=== PATIENT | male | born 1955 | race Caucasian/White ===

== ENCOUNTER → 2018-06-25 16:39 | Outpatient (CLI) | payer BC, SELFPAY ==
--- NOTE | 2018-06-25 16:44 | XR_ITS ---
EXAM: XR cervical spine 5V HISTORY: Neck pain and stiffness with limited range of motion ITS.REASON: DISORDER OF NECK ORDERING PHYSICIAN: Jerzy Gomez MD PATIENT AGE: 62 years COMPARISON: None FINDINGS: There is slight reversal of the cervical lordosis. No fracture or dislocation. Degenerative disc disease is present at C4-C5 C5-C6 and C6-C7 with small endplate osteophytes. There is mild foraminal narrowing at C5-C6 and C6-C7 left with moderate foraminal narrowing on the right at C3-C4. There is a small left cervical rib at C7. Facet and uncovertebral arthritic changes are present. IMPRESSION: 1. No acute fracture. 2. Cervical spondylosis with reversal of lordosis which may be due to patient positioning or muscle spasm with degenerative disc disease and uncovertebral and facet arthritic change with foraminal narrowing
== END ==
PROVIDERS: PCP Family Medicine; Visit Provider Family Medicine
DX: M53.82 Other specified dorsopathies, cervical region (principal)
CPT/HCPCS: 72050

== ENCOUNTER → 2018-12-12 14:41 | Outpatient (CLI) | payer BC, SELFPAY ==
[2018-12-12 15:12] LABS: Basophils # 0.1 K/mm3 (0-0.2); Basophils % 0.7 % (0.1-2.0); Eosinophils # 0.1 K/mm3 (0.0-0.4); Eosinophils % 0.8 % (0.1-12.0); Hematocrit 47.2 % (42.0-52.0); Hemoglobin 15.1 g/dL (14.1-18.0); Mean Corpuscular HGB Conc 32.1 g/dL (31.8-35.4); Mean Corpuscular Hemoglobin 28.9 pg (27.0-31.2); Mean Corpuscular Volume 90.2 fl (80-94); Mean Platelet Volume 6.6 fl (7.4-10.4); Monocytes # 0.4 K/mm3 (0.1-1.0); Monocytes % 4.7 % (1.7-9.3); Neutrophils # 4.3 K/mm3 (1.8-7.8); Neutrophils % 48.9 % (37.0-80.0); Platelet Count 367 K/mm3 (142-424); Red Blood Count 5.24 M/mm3 (4.60-6.20); Red Cell Distribution Width 12.9 % (11.5-17.5); White Blood Count 8.9 K/mm3 (4.8-10.8)
[2018-12-12 17:55] LABS: Alanine Aminotransferase 30 U/L (12-78); Albumin Level 4.2 gm/dL (3.4-5.0); Albumin/Globulin Ratio 1.3 (1.1-1.8); Alkaline Phosphatase 81 U/L (46-116); Anion Gap 15.2 mEq/L (5-15); Aspartate Amino Transferase 14 U/L (15-37); Bilirubin,Total 0.4 mg/dL (0.2-1.0); Blood Urea Nitrogen 9 mg/dL (7-18); Calcium 9.5 mg/dL (8.5-10.1); Carbon Dioxide 26 mmol/L (21.0-32.0); Chloride 101 mmol/L (98-107); Creatinine,Serum 0.91 mg/dL (0.70-1.30); Estimated Glomerular Filt Rate 84 ml/min (>60); GFR (African American) 102 ML/MIN (>60); Globulin 3.3 gm/dl (1.3-3.2); Glucose 88 mg/dL (74-106); Potassium 4.2 mmoL/L (3.5-5.1); Sodium 138 mmol/L (136-145); Total Protein,Serum 7.5 gm/dL (6.4-8.2)
== END ==
PROVIDERS: Visit Provider Physician Assistant
DX: R07.89 Other chest pain (principal); R53.83 Other fatigue; I10 Essential (primary) hypertension
CPT/HCPCS: 36415; 80053; 83880; 85025

== ENCOUNTER → 2020-06-25 11:20 | Outpatient (CLI) | payer BC, SELFPAY ==
--- NOTE | 2020-06-25 11:26 | XR_ITS ---
PROCEDURE: XR FOOT RT MIN 3V CLINICAL INDICATION: RT FOOT PAIN First and 2nd toe pain COMPARISON: No exams were available for comparison FINDINGS: No fracture or dislocation. No lytic or blastic change. There is normal mineralization. Osteoarthritic changes are present at the 1st MTP joint Other findings:None. IMPRESSION: Mild osteoarthritic change 1st MTP joint Dictated by: Hood Lackey MD 06/26/2020 09:48 Electronically signed by Hood Lackey MD in [place] 06/26/2020 09:48
== END ==
PROVIDERS: PCP Family Medicine; Visit Provider Family Medicine
DX: M79.671 Pain in right foot (principal)
CPT/HCPCS: 73630

== ENCOUNTER → 2023-04-25 10:41 | Outpatient (POV) | payer BC, SELFPAY | PROVIDERS: Visit Provider Dermatology | DX: Z00.00 Encounter for general adult medical examination without abnormal findings (principal) ==

== ENCOUNTER 2024-10-30 11:12 | Outpatient (CLI) | payer BC, SELFPAY ==
[2024-10-30 18:15] LABS: Adenovirus,PCR Not Detected (NotDetected); Bordetella Pertussis Not Detected (NotDetected); Chlamydophila Pneumoniae, PCR Not Detected (NotDetected); Coronavirus 19, PCR Not Detected (NotDetected); Coronavirus 229E Not Detected (NotDetected); Coronavirus NL63 Not Detected (NotDetected); Coronavirus OC43 Not Detected (NotDetected); Coronovirus HKU1,PCR Not Detected (NotDetected); Human Metapneumovirus Not Detected (NotDetected); Influenza A, PCR Not Detected (NotDetected); Influenza AH1, 2009 Not Detected (NotDetected); Influenza AH1, PCR Not Detected (NotDetected); Influenza AH3,PCR Not Detected (NotDetected); Influenza B, PCR Not Detected (NotDetected); Mycoplasma Pneumoniae, PCR Not Detected (NotDetected); Parainfluenza 1, PCR Not Detected (NotDetected); Parainfluenza 2, PCR Not Detected (NotDetected); Parainfluenza 3, PCR Not Detected (NotDetected); Parainfluenza 4, PCR Not Detected (NotDetected); Respiratory Syncytial Virus Not Detected (NotDetected)
[2024-10-31 17:50] LABS: Rhinovirus/Enterovirus Detected (NotDetected)
== END 2024-10-30 23:59 | disposition home or self-care (01) ==
LOC: LAB.DROPOF 10-31 10:48
PROVIDERS: PCP Nurse Practitioner Family; Visit Provider Nurse Practitioner Family
DX: R09.81 Nasal congestion (principal); J02.9 Acute pharyngitis, unspecified
CPT/HCPCS: 87070; 87633

== ENCOUNTER 2025-09-26 07:59 | Outpatient (CLI) | payer BC, SELFPAY ==
--- OUTSIDE RECORDS SUMMARY | 2024-09-11 05:00 | XMS_ITS ---
Author Organization [facility] Address [address] [facility] [address] [place] [id number] Care Team Providers Care Fruit Or Nut Picker Name Role Phone Brittny Gomez Primary Care Provider BRITTNY GOMEZ Unavailable Unavailable Allergies No Known Allergies Results Component Value Reference Range Notes Glucose (In-House) Reviewed date:09/12/2024 10:32:23 AM Interpretation:116 Performing Lab: Notes/Report: 116 blood glucose 116 74 - 106 mg/dL Glycohemoglobin A1c (in hous e) Reviewed date:09/12/2024 10:32:23 AM Interpretation:5.5 Performing Lab: Notes/Report: 5.5 glycohemoglobin 5.5% 5 - 6.5 % P-Comprehensive Metabolic Pa yaneli (CMP) Reviewed date:09/12/2024 10:32:23 AM Interpretation:gluc 110 Performing Lab: Notes/Report: Test performed by [facility], [facility] , [address], [place] [address] Noble Yoon MD, [employer] Mixer Operator CLIA: [id number] Sodium 138 135-145 mmol/L Potassium 4.7 3.5-5.3 mmol/L Chloride 102 97-108 mmol/L CO2 26 22-32 mmol/L Glucose 110 65-99 mg/dL BUN 10 8-23 mg/dL Creatinine 0.98 0.70-1.30 mg/dL Calcium 9.7 8.6-10.4 mg/dL eGFR by Creatinine 84 >59 mL/min/1.73m2 Protein 7.0 6.0-8.3 g/dL Albumin 4.5 3.5-5.3 g/dL Alkaline Phosphatase 87 40-129 IU/L ALT (SGPT) 48 <5-55 IU/L AST (SGOT) 43 <5-46 IU/L Bilirubin, Total 0.6 <0.2-1.2 mg/dL A/G Ratio 1.8 1.1-2.5 P-Lipid Panel Reviewed date:09/12/2024 10:32:23 AM Interpretation:chol 203, trigs 191, hdl 37, chol/hdl 5.49, non-hdl 166, ldl/hdl 3.5 Performing Lab: Notes/Report: Test performed by [facility], [address] , [place] [address] Noble Yoon MD, [employer] Mixer Operator CLIA: [id number] Cholesterol 203 <200 mg/dL Triglycerides 191 <150 mg/dL HDL Cholesterol 37 >39 mg/dL Cholesterol / HDL Ratio 5.49 0.00-4.99 Ratio Non-HDL Cholesterol 166 <130 mg/dL LDL Cholesterol (Calculation) 128 <130 mg/dL LDL Cholesterol Levels* Less than 100 mg/dL Optimal 100 to 129 mg/dL Near Optimal/ Above Optimal 130 to 159 mg/dL Borderline High 160 to 189 mg/dL High 190 mg/dL and above Very High * Categories as recommended by the 2004 ATPIII guidelines LDL/HDL Ratio 3.5 <3.3 Ratio LDL Cholesterol Patient History Test Date: 03/21/2024 LDL Results: 107 Units: mg/dL % Change: - Test Date: 09/11/2024 LDL Results: 128 Units: mg/dL % Change: +19% REASON FOR VISIT 6 months Medications Medication SIG (Take, Route, Frequency, Duration) Notes Start Date End Date Status Metoprolol Tartrate 25 MG 1/2 tablet wit h food Orally Twice a day; Duration: 90 days Active Lisinopril 2.5 MG TAKE 1 TABLET BY NIK EVERY DAY FOR 90 DAYS; Duration: 90 days Active Nitroglycerin 0.[address] 1 TABLET UNDE R TONGUE EVERY 5 MINS, UP TO 3 DOSES NEEDED FOR CHEST PAIN; Duration: 25 Active Albuterol Sulfate HFA 108 (90 Base) MCG/ACT 1 puff as needed Inhalation every 4 hrs Active Montelukast Sodium 10 MG TAKE 1 TABLET B Y MOUTH EVERY DAY FOR 90 DAYS; Duration: 90 days Active Vitamin D3 50 MCG (2000 UT) 1 tab(s) ora lly once a day; Duration: 30 day(s) Active Aspirin 81 MG 1 tab(s) orally once a day Active Pantoprazole Sodium 40 MG 1 tab(s) orall y once a day; Duration: 90 days Active Wixela Inhub 250-50 MCG/ACT INHALE 1 PUF F TWICE A DAY; Duration: 90 days Active Pravastatin Sodium 80 MG 1 tab(s) orally once a day; Duration: 90 days Active Immunizations Vaccine Route Administration Date Status Comme nts Fluzone High Dose (65yr and older) IM Intramuscular 09/11/2024 Administered Prevnar (PCV20) IM Intramuscular 09/11/2024 Administered Problems Problem Type SNOMED Code ICD Code Onset Dates Problem Status W/U Status Risk Notes Problem Impaired fasting glycaemia (827140323) IFG (impaired fasting glucose) (R73.01) Active confirmed Vital Signs Blood pressure systolic 120 mm Hg 09/11/20 24 Blood pressure diastolic 74 mm Hg 024 Heart Rate 84 /min 09/11/2024 Height 70 in 09/11/2024 Weight 213 lbs 09/11/2024 BMI 30.56 kg/m2 09/11/2024 Encounters Encounter Location Date Provider Diagnosis [facility] [address] [place], [place] [id number] 09/11/2024 Brittny Gomez Essential hypertensi on I10 ; Chronic obstructive pulmonary disease, unspecified J44.9 ; Allergic rhinitis, unspecified seasonality, unspecified trigger J30.9 ; Dyslipidemia E78.5 ; Gastroesophageal reflux disease without esophagitis K21.9 ; IFG (impaired fasting glucose) R73.01 and Encounter for immunization Z23 Assessments Encounter Date Diagnosis (ICD Code) Assessment Notes Treatment Notes Treatment Clinical Notes Section Notes 09/11/2024 Essential hypertension (ICD-10 - I10) 09/11/2024 Chronic obstructive pulmonary disease, unspecified (ICD-10 - J44.9) 09/11/2024 Allergic rhinitis, unspecified seasonality, unspecified trigger (ICD-10 - J30.9) 09/11/2024 Dyslipidemia (ICD-10 - E78.5) 09/11/2024 Gastroesophageal reflux disease without esophagitis (ICD-10 - K21.9) 09/11/2024 IFG (impaired fasting glucose) (ICD-10 - R73.01) 09/11/2024 Encounter for immunization (ICD-10 - Z23) Plan Of Treatment Medication Medication Name Sig Start Date Stop Date Notes Metoprolol Tartrate 25 MG 1/2 tablet wit h food Orally Twice a day; Duration: 90 days Lisinopril 2.5 MG TAKE 1 TABLET BY NIK TH EVERY DAY FOR 90 DAYS; Duration: 90 days Montelukast Sodium 10 MG TAKE 1 TABLET B Y MOUTH EVERY DAY FOR 90 DAYS; Duration: 90 days Pantoprazole Sodium 40 MG 1 tab(s) orall y once a day; Duration: 90 days Wixela Inhub 250-50 MCG/ACT INHALE 1 PUF F TWICE A DAY; Duration: 90 days Pravastatin Sodium 80 MG 1 tab(s) orally once a day; Duration: 90 days Next Appt Details Follow Up: 6 Months, Reason: Provider Name:Brittny Drew ry, 03/12/2026 09:30:00 AM, [address], [address], [place], [place], [phone], Progress Notes * IQRA TURKDOB: [birth year] (70 yo M)Acc No.[id number]:09/11/2024 Progress Notes Patient: IQRA HILLIADR Provider: Michael Gomez M.D. :1955 A ge:68 Y S ex:Male Date:09/11/2024 Address:[facility] [place], [id number] Subjective: * Chief Complaints: * 1 . 6 months. * HPI: C ardiology: 68 year old male presents with c/o Blood Pressure Elevated P t here for 6 mo f/u on hypertension, states he is doing well and does not have any concerns. c/o Hyperlipidemia P t is fasting today. * ROS: D ERMATOLOGY: no R lily. n o H viridiana. G ASTROENTEROLOGY: no N ausea. n o V omiting. U ROLOGY: no D ifficulty urinating. n o B lood in urine. * Medical History: C oronary Artery Disease, Myocardial Infarction 06/23/2014, Hyperlipidemia, Esophageal Reflux, COPD, PFT's 09/2014, Allergic Rhinitis, Hyperuricemia, 50 pack year smoking history, quit 2021, Allergic rhinitis. * Surgical History: A ppendectomy , Finger , Double Hernia Repair 1992, Hernia Repair 2005, Colonscopy, Polyps x 2 , Cardiac Stent- [facility] 06/23/2014 , RT Lung, Wedge Biopsy, Benign- [facility] 02/2022. * Hospitalization/Major Diagno stic Procedure: S tomach Pain- [facility] 07/18/2011, Myocardial Infarction- [facility] 06/23-, LT Index Finegr Laceration- [facility] 05/24/2016, Heat Exhaustion- [facility] 07/02/2016, Head Laceration- [facility] 07/21/2016. * Family History: F ather: 79 yrs. M other: alive 74 yrs. P aternal Grand Father: .?Paternal Grand Mother: . M aternal Grand Father: . M aternal Grand Mother: . 2 daughter(s) - healthy. . no known colon cancer in family. * Social History: C URRENT TOBACCO USE S moking Status: P atient does NOT smoke. C affeine: yes, frequency:daily. Exercise: yes. Home smoke detector use: yes. Marital Status: . New since last visit: none. 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 Past smoking status: yes, PPD:1pkqd , years:32 ,determination:. Occup. exposure: none. Recreational drug use: no. Alcohol: no. Sexually active: yes. Travel ouside [place]: no. * Medications: T aking Vitamin D3 50 MCG (2000 UT) Tablet 1 tab(s) orally once a day , Taking Aspirin 81 MG Tablet Delayed Release 1 tab(s) orally once a day , Taking Albuterol Sulfate HFA 108 (90 Base) MCG/ACT Aerosol Solution 1 puff as needed Inhalation every 4 hrs , Taking Pravastatin Sodium 80 MG Tablet 1 tab(s) orally once a day , Taking Pantoprazole Sodium 40 MG Tablet Delayed Release 1 tab(s) orally once a day , Taking Wixela Inhub 250-50 MCG/ACT Aerosol Powder Breath Activated INHALE 1 PUFF TWICE A DAY , Taking Nitroglycerin 0.[address] 1 TABLET UNDER TONGUE EVERY 5 MINS, UP TO 3 DOSES NEEDED FOR CHEST PAIN , Taking Metoprolol Tartrate 25 MG Tablet 1/2 tablet with food Orally Twice a day , Taking Lisinopril 2.5 MG Tablet TAKE 1 TABLET BY MOUTH EVERY DAY FOR 90 DAYS , Taking Montelukast Sodium 10 MG Tablet TAKE 1 TABLET BY MOUTH EVERY DAY FOR 90 DAYS , Discontinued Clopidogrel Bisulfate 75 MG Tablet 1 tab(s) orally once a day , Medication List reviewed and reconciled with the patient * Allergies: N .K.D.A. Objective: * Vitals: W t:213, Temp:98.0, BP:120/74, HR:84, Nurse:mellissa, Ht: 70, BMI:30.56. * Examination: C ardiology: General Appearance: p leasant, NAD. H eart sounds: R RR, normal S1, S2. L ungs: c lear, no rales or wheezes. E xtremities: n o leg edema. P eripheral pulses: 2 plus bilateral. Assessment: * Assessment: 1. E ssential hypertension - I10 (Primary) 2 . C hronic obstructive pulmonary disease, unspecified - J44.9 3 . A llergic rhinitis, unspecified seasonality, unspecified trigger - J30.9 4 . D yslipidemia - E78.5 5 . G astroesophageal reflux disease without esophagitis - K21.9 6 . I FG (impaired fasting glucose) - R73.01 7 . E ncounter for immunization - Z23 Plan: * Treatment: Value Reference Range A /G Ratio 1.8 1.1-2.5 - * A lbumin 4.5 3.5-5.3 - g/dL * A lkaline Phosphatase 87 40-129 - IU/L * A LT (SGPT) 48 <5-55 - IU/L * A ST (SGOT) 43 <5-46 - IU/L * B ilirubin, Total 0.6 <0.2-1.2 - mg/dL * B UN 10 8-23 - mg/dL * C alcium 9.7 8.6-10.4 - mg/dL * C hloride 102 97-108 - mmol/L * C O2 26 22-32 - mmol/L * C reatinine 0.98 0.70-1.30 - mg/dL * G lucose 110 H 65-99 - mg/dL * P otassium 4.7 3.5-5.3 - mmol/L * S odium 138 135-145 - mmol/L * P rotein 7.0 6.0-8.3 - g/dL * e GFR by Creatinine 84 >59 - mL/min/1.73m2 * Haydee Dexter 09/12/2024 10:3 2:14 AM >See phone encounter 2.?Chronic obstructive pulmonary disease, unspecified? Refill Wixela Inhub Aerosol Powder Breath Activated, 250-50 MCG/ACT, INHALE 1 PUFF TWICE A DAY, 90 days, 180 Each, Refills 1.??3.?Allergic rhinitis, unspecified seasonality, unspecified trigger? Refill Montelukast Sodium Tablet, 10 MG, TAKE 1 TABLET BY MOUTH EVERY DAY FOR 90 DAYS, 90 days, 90 Tablet, Refills 1.??4.?Dyslipidemia? Refill Pravastatin Sodium Tablet, 80 MG, 1 tab(s), orally, once a day, 90 days, 90, Refills 1.?LAB: P-Comprehensive Metabolic Panel (CMP) (Collection Date & Time - 09/11/2024 08:51 AM)?gluc 110* Value Reference Range A /G Ratio 1.8 1.1-2.5 - * A lbumin 4.5 3.5-5.3 - g/dL * A lkaline Phosphatase 87 40-129 - IU/L * A LT (SGPT) 48 <5-55 - IU/L * A ST (SGOT) 43 <5-46 - IU/L * B ilirubin, Total 0.6 <0.2-1.2 - mg/dL * B UN 10 8-23 - mg/dL * C alcium 9.7 8.6-10.4 - mg/dL * C hloride 102 97-108 - mmol/L * C O2 26 22-32 - mmol/L * C reatinine 0.98 0.70-1.30 - mg/dL * G lucose 110 H 65-99 - mg/dL * P otassium 4.7 3.5-5.3 - mmol/L * S odium 138 135-145 - mmol/L * P rotein 7.0 6.0-8.3 - g/dL * e GFR by Creatinine 84 >59 - mL/min/1.73m2 * Haydee Dexter 09/12/2024 10:3 2:14 AM >See phone encounter ?LAB: P-Lipid Panel (Collection Date & Time - 09/11/2024 08:51 AM)?chol 203, trigs 191, hdl 37, chol/hdl 5.49, non-hdl 166, ldl/hdl 3.5* Value Reference Range C holesterol / HDL Ratio 5.49 H 0.00-4.99 - Ratio * C holesterol 203 H <200 - mg/dL * H DL Cholesterol 37 L >39 - mg/dL * L DL Cholesterol (Calculation) 128 <130 - mg/d L * L DL/HDL Ratio 3.5 H <3.3 - Ratio * N on-HDL Cholesterol 166 H <130 - mg/dL * T riglycerides 191 H <150 - mg/dL * Haydee Dexter 09/12/2024 10:3 2:14 AM >See phone encounter 5.?Gastroesophageal reflux disease without esophagitis? Refill Pantoprazole Sodium Tablet Delayed Release, 40 MG, 1 tab(s), orally, once a day, 90 days, 90, Refills 1.??6.?IFG (impaired fasting glucose)?LAB: Glucose (In-House) (Collection Date & Time - 09/11/2024)?116* Value Reference Range b lood glucose 116 74 - 106 mg/dL * Aniyah Herrera 09/11/2024 10:39: 17 AM > Haydee Dexter 09/12/2024 10:32:14 AM >See phone encounter ?LAB: Glycohemoglobin A1c (in house) (Collection Date & Time - 09/11/2024)? 5.5* Value Reference Range g lycohemoglobin 5.5% 5 - 6.5 % * Aniyah Herrera 09/11/2024 10:43: 43 AM > Haydee Dexter 09/12/2024 10:32:14 AM >See phone encounter * Immunizations: Fluzone High Dose (65yr and older) : 0.5 mL (Route: Intramuscular) given by Aniyah Herrera on Right Deltoid (Encounter for immunization) Prevnar (PCV20) : 0.5 mL (Route: Intramuscular) given by Aniyah Herrera on Left Deltoid (Encounter for immunization) * Procedure Codes: G 2211 Complex [place], [address] GLUCOSE TEST, 01206 GLYCATED HEMOGLOBIN TEST, Modifiers: QW * Follow Up: 6 Months * Images: Billing Information: * Visit Code: 03865 Office Visit, Est Pt., Level 4. * Procedure Codes: G2211 Complex e/[place]. [address] GLUCOSE TEST. 84618 GLYCATED HEMOGLOBIN TEST. Modifiers: QW * Electronic signature of Jaylyn Gomez MD on 09/26/2025 at 08:01 AM EDT Sign off status: Pending * Provider: Michael Gomez M.D. Date: Generated for Alicia west/Marbella/Frankyitting on: 08:01 AM EDT History and Physical Notes * HPI (History of Present Illness) Category Sub-Category Detail Notes Category Not es Cardiology Blood Pressure Elevated Pt here for 6 mo f/u on hypertension, states he is doing well and does not have any concerns Hyperlipidemia Pt is fasting today Examination Category Sub-Category Detail Notes Category Not es Cardiology Lungs: clear, no rales or wheezes Heart sounds: RRR, normal S1, S2 Extremities: no leg edema Peripheral pulses: 2 plus bilateral General Appearance: pleasant, NAD
--- OUTSIDE RECORDS SUMMARY | 2024-10-23 10:00 | XMS_ITS ---
Author Organization 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 Referred Provider Specialty Dermatology General Notes Pau Flores 09/28 2:18:01 PM > Needs appt with Dr. Ariana LAMAR for skin lesion and also needs a head to toe skin exam, Purvi Aleman 10/23/2024 2:20:14 PM > faxed to [facility], Dayanara Colin 10/23/2024 3:26:41 PM > Patient called and he is scheduled with [facility] on Nov.01 Referral Priority Routine REASON FOR VISIT dry spot on arm turned into scalling buring raised area Medications Medication SIG (Take, Route, Frequency, Duration) Notes Start Date End Date Status Lisinopril 2.5 MG TAKE 1 TABLET BY NIK EVERY DAY FOR 90 DAYS; Duration: 90 days Active Pantoprazole Sodium 40 MG 1 tab(s) orall y once a day; Duration: 90 days Active Wixela Inhub 250-50 MCG/ACT INHALE 1 PUF F TWICE A DAY; Duration: 90 days Active Montelukast Sodium 10 MG TAKE 1 TABLET B Y MOUTH EVERY DAY FOR 90 DAYS; Duration: 90 days Active Metoprolol Tartrate 25 MG 1/2 tablet wit h food Orally Twice a day; Duration: 90 days Active Vitamin D3 50 MCG (2000 UT) 1 tab(s) ora lly once a day; Duration: 30 day(s) Active Aspirin 81 MG 1 tab(s) orally once a day Active Albuterol Sulfate HFA 108 (90 Base) MCG/ACT 1 puff as needed Inhalation every 4 hrs Active Nitroglycerin 0.[address] 1 TABLET UNDE R TONGUE EVERY 5 MINS, UP TO 3 DOSES NEEDED FOR CHEST PAIN; Duration: 25 Active Pravastatin Sodium 80 MG 1 tab(s) orally once a day; Duration: 90 days Active Vital Signs Blood pressure systolic 124 mm Hg 10/23/20 24 Blood pressure diastolic 84 mm Hg 024 Heart Rate 82 /min 10/23/2024 Height 70 in 10/23/2024 Weight 213.4 lbs 10/23/2024 BMI 30.62 kg/m2 10/23/2024 Encounters Encounter Location Date Provider Diagnosis [facility] [address] [facility] [address] [place] [id number] 10/23/2024 Pau Flores Neoplasm of uncertai n behavior of skin D48.5 Assessments Encounter Date Diagnosis (ICD Code) Assessment Notes Treatment Notes Treatment Clinical Notes Section Notes 10/23/2024 Neoplasm of uncertain behavior of skin (ICD-10 - D48.5) 1.5 x 1 cm in size Plan Of Treatment Treatment Notes Assessment Notes Neoplasm of uncertain behavior of skin 1 .5 x 1 cm in size Referrals Referral Date Details 10/23/2024 10/23/2024, . Dermat ology Next Appt Details Follow Up: with dermatology, Reason: Provider Name:Brittny dexter, 03/12/2026 09:30:00 AM, [address], [address], [place], [id number], Progress Notes * IQRA TURKDOB: [birth year] (70 yo M)Acc No.[id number]:10/23/2024 Progress Notes Patient: Michael IQRA BROTHERS Provider: SILAS Ramirez :1955 A ge:69 Y S ex:Male Date:10/23/2024 Address:[address], [place], [id number] Pcp:Brittny Gomez Subjective: * Chief Complaints: * 1 . Dry spot on arm turned into scalling buring raised area. * HPI: D ermatology: 69 year old male presents with c/o Dry Skin P t complains of dry skin patch in rt forearm that he noticed a couple weeks ago. Pt states the patch has started burning and itching now and he is concerned. * ROS: C ARDIOLOGY: no D izziness. n o C hest pain. G ASTROENTEROLOGY: no N ausea. n o [...] Colonscopy, Polyps x 2 , Cardiac Stent- [facility] 06/23/2014 , RT Lung, Wedge Biopsy, Benign- [place] 02/2022. * Hospitalization/Major Diagno stic Procedure: S tomach Pain- [facility] 07/18/2011, Myocardial Infarction- [place] 06/23-, LT Index Finegr Laceration- [facility] 05/24/2016, Heat Exhaustion- [facility] 07/02/2016, Head Laceration- [facility] 07/21/2016. * Family History: F ather: [...] needed Inhalation every 4 hrs , Taking Nitroglycerin 0.[address] 1 TABLET UNDER TONGUE EVERY 5 MINS, UP TO 3 DOSES NEEDED FOR CHEST PAIN , Taking Pravastatin Sodium 80 MG Tablet 1 tab(s) orally once a day , Taking Pantoprazole Sodium 40 MG Tablet Delayed Release 1 tab(s) orally once a day , Taking Wixela Inhub 250-50 MCG/ACT Aerosol Powder Breath Activated INHALE 1 PUFF TWICE A DAY , Taking Montelukast Sodium 10 MG Tablet TAKE 1 TABLET BY MOUTH EVERY DAY FOR 90 DAYS , Taking Metoprolol Tartrate 25 MG Tablet 1/2 tablet with food Orally Twice a day , Taking Lisinopril 2.5 MG Tablet TAKE 1 TABLET BY MOUTH EVERY DAY FOR 90 DAYS , Medication List reviewed and reconciled with the patient * Allergies: N .K.D.A. Objective: * Vitals: W t:213.4, Temp:97.7, BP:124/84, HR:82, Nurse:mellissa, Ht: 70, BMI:30.62. * Examination: D ermatology: Extremities: r ight forearm with a 1 x 1.5cm erythematous skin lesion that is scaly and tender, non healing. Assessment: * Assessment: 1. 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 * Procedure Codes: * Electronic signature of SILAS Cintron on 09/26/2025 at 08:02 AM EDT Sign off status: Pending * Provider: SILAS Ramirez Date: 12/23/2023 Generated for Alicia west/Marbella/eTransmitting on: 08:02 AM EDT History and Physical Notes * HPI (History of Present Illness) Category Sub-Category Detail Notes Category Not es Dermatology Dry Skin Pt complains of dry skin patch in rt forearm that he noticed a couple weeks ago. Pt states the patch has started burning and itching now and he is concerned Examination Category Sub-Category Detail Notes Category Not es Dermatology Extremities: right forearm wi th a 1 x 1.5cm erythematous skin lesion that is scaly and tender, non healing Consultation Request Notes Referral Date Referring Provider Referred Provider Not es 10/23/2024 Pau Flores Dermatology, .
--- OUTSIDE RECORDS SUMMARY | 2024-11-05 10:30 | XMS_ITS ---
Author Organization [facility] Address [address] [facility] [address] [place] [id number] Care Team Providers Care Chamber Worker Name Role Phone Brittny Gomez Primary Care Provider BRITTNY GOMEZ Unavailable Unavailable Ranyd Bryant Unavailable [phone] Allergies No Known Allergies Results Component Value Reference Range Notes CBC Fingerstick (in house) Reviewed date:11/05/2024 03:46:34 PM Interpretation: Performing Lab: Notes/Report: wbc 9.6 3.5 - 10 lym 30.1 15 - 50 mid 6.0 2 - 15 gran 63.9 35 - 80 rbc 5.41 3.5 - 5.5 hgb 15.5 11.5 - 16.5 hct 46.0 35 - 55 mcv 85.1 75 - 100 mch 28.6 25 - 35 mchc 33.6 31 - 38 plat 190 100 - 400 REASON FOR VISIT head congestion, chest congestion, concerns of pnemonia Medications Medication SIG (Take, Route, Frequency, Duration) Notes Start Date End Date Status Pantoprazole Sodium 40 MG 1 tab(s) orall y once a day; Duration: 90 days Active Albuterol Sulfate HFA 108 (90 Base) MCG/ACT 1 puff as needed Inhalation every 4 hrs Active Montelukast Sodium 10 MG TAKE 1 TABLET B Y MOUTH EVERY DAY FOR 90 DAYS; Duration: 90 days Active Vlteodquc-Bedzpuph-MP 30-1-20 MG/5ML 5 -10 ml Orally every 6 hrs prn 11/05/2024 Active Wixela Inhub 250-50 MCG/ACT INHALE 1 PUF F TWICE A DAY Active Aspirin 81 MG 1 tab(s) orally once a day Active Nitroglycerin 0.[address] 1 TABLET UNDE R TONGUE EVERY 5 MINS, UP TO 3 DOSES NEEDED FOR CHEST PAIN; Duration: 25 Active Cefuroxime Axetil 500 MG 1 tablet Orally every 12 hrs 11/05/2024 Active Pravastatin Sodium 80 MG 1 tab(s) orally once a day; Duration: 90 days Active Vitamin D3 50 MCG (1999 UT) 1 tab(s) ora lly once a day; Duration: 30 day(s) Active Lisinopril 2.5 MG TAKE 1 TABLET BY NIK TH EVERY DAY FOR 90 DAYS; Duration: 90 days Active Metoprolol Tartrate 25 MG 1/2 tablet wit h food Orally Twice a day; Duration: 90 days Active Benzonatate 200 MG 1 capsule Orally Thr ee times a day 11/01/2024 Active Vital Signs Blood pressure systolic 120 mm Hg 11/05/20 24 Blood pressure diastolic 90 mm Hg 024 Heart Rate 92 /min 11/05/2024 Height 70 in 11/05/2024 Weight 211.2 lbs 11/05/2024 BMI 30.30 kg/m2 11/05/2024 Encounters Encounter Location Date Provider Diagnosis [facility] [facility] [address] [place] [id number] 11/05/2024 Randy Bryant Acute bronchitis J20 .9 and COPD (chronic obstructive pulmonary disease) J44.9 Assessments Encounter Date Diagnosis (ICD Code) Assessment Notes Treatment Notes Treatment Clinical Notes Section Notes 11/05/2024 Acute bronchitis (ICD-10 - J20.9) 11/05/2024 COPD (chronic obstructive pulmonary disease) (ICD-10 - J44.9) Plan Of Treatment Medication Medication Name Sig Start Date Stop Date Notes Albuterol Sulfate HFA 108 (9 0 Base) MCG/ACT 1 puff as needed Inhalation every 4 hrs Oarmsdlfl-Nvypjios-ZO 30-1-2 0 MG/5ML 5 -10 ml Orally every 6 hrs prn 11/05/2024 Wixela Inhub 250-50 MCG/ACT INHALE 1 PUFF TWICE A DAY Cefuroxime Axetil 500 MG 1 tablet Orally every 12 hrs 10/27 Next Appt Details Follow Up: prn, Reason: Provider Name:Brittny Drew ry, 03/12/2026 09:30:00 AM, [address], [address], [place], [place], [id number], Medications Administered Medication Instructions Date of Administration Dosage Notes Dexamethasone 11/05/2024 1 mL Progress Notes * IQRA TURKDOB: [birth year] (70 yo M)Acc No.[id number]:11/05/2024 Progress Notes Patient: IQRA HILLIARD Provider: Randy Bryant M.D. :1955 A ge:69 Y S ex:Male Date:11/05/2024 Address:[id number] Pcp:Brittny Gomez Subjective: * Chief Complaints: * 1 . Head congestion, chest congestion, concerns of pnemonia. * HPI: E NT/respiratory: 69 year old male presents with c/o cough P t sts he started to get sick last Monday. Pt sts he went to primary care [facility] and was tested for flu and c ovid which were both negative. Pt sts he took the medication given for a viral infection and sts he is just getting worse. Pt sts he has a bad cough , greenish yellow sputum production and sts he has busted a blood vessel in his right eye from coughing so much and so hard. c/o nasal congestion?yellow drainage, green drainage, getting worse. c/o chest congestion. * ROS: C ARDIOLOGY: no D izziness. [...] Colonscopy, Polyps x 2 , Cardiac Stent- [place] 06/23/2014 , RT Lung, Wedge Biopsy, Benign- [place] 02/2022. * Hospitalization/Major Diagno stic Procedure: S tomach Pain- [facility] 07/18/2011, Myocardial Infarction- [place] 06/23-, LT Index Finegr Laceration- [facility] 05/24/2016, Heat Exhaustion- [facility] 07/02/2016, Head Laceration- [facility] 07/21/2016. * Family History: F ather: [...] EVERY DAY FOR 90 DAYS , Taking Benzonatate 200 MG Capsule 1 capsule Orally Three times a day , Medication List reviewed and reconciled with the patient * Allergies: N .K.D.A. Objective: * Vitals: W t:211.2, Temp:97.6, BP:120/90, HR:92, Nurse:MEREDITH, Ht: 70, BMI:30.30. * Examination: E NT/Respiratory: General Appearance: appears not to feel well. Mildly dyspneic. E ars: a uditory canals normal bilaterally, TM's WNL. N ose : congested. S inuses : tender maxillary sinuses bilaterally, frontal sinuses tender. O ral cavity : erythema without exudate on pharynx. H eart : R RR, normal S1 S2, no murmurs.?Lungs: S cattered rhonchi and occasional wheezes. Assessment: * Assessment: 1. A cute bronchitis - J20.9 (Primary) 2 . C OPD (chronic obstructive pulmonary disease) - J44.9 Plan: * Treatment: Value Reference Range w bc 9.6 3.5 - 10 * l ym 30.1 15 - 50 * m id 6.0 2 - 15 * g ran 63.9 35 - 80 * r bc 5.41 3.5 - 5.5 * h gb 15.5 11.5 - 16.5 * h ct 46.0 35 - 55 * m cv 85.1 75 - 100 * m ch 28.6 25 - 35 * m chc 33.6 31 - 38 * p lat 190 100 - 400 * Hannah Silva 11/05/2024 2:43 :35 PM > , Provider reviewed results while patient in office. 2.?COPD (chronic obstructive pulmonary disease)? Continue Albuterol Sulfate HFA Aerosol Solution, 108 (90 Base) MCG/ACT, 1 puff as needed, Inhalation, every 4 hrs;?Continue Wixela Inhub Aerosol Powder Breath Activated, 250-50 MCG/ACT, INHALE 1PUFF TWICE A DAY.?? * Therapeutic Injections: Dexamethasone : 1 mL (Route: Intramuscular) given by MEREDITH Schmitz on right gluteus (Acute bronchitis) * Procedure Codes: 3 6416 CAPILLARY BLOOD DRAW, 56936 CBC WITH AUTO DIFF, J1100 Dexamethasone, 82060 ADMINISTRATION OF INJECTION * Follow Up: p rn * Images: Billing Information: * Visit Code: 07876 Office Visit, Est Pt., Level 4. * Procedure Codes: 01010 CAPILLARY BLOOD DRAW. 56106 CBC WITH AUTO DIFF. J1100 Dexamethasone. 56674 ADMINISTRATION OF INJECTION. * Electronic signature of Randy Bryant MD on 09/26/2025 at 08:02 AM EDT Sign off status: Pending * Provider: Randy Bryant M.D. Date: 01/06/2024 Generated for Alicia west/[place]/eTransmitting on: 08:02 AM EDT History and Physical Notes * HPI (History of Present Illness) Category Sub-Category Detail Notes Category Not es ENT/respiratory cough Pt sts he starte d to get sick last Monday. Pt sts he went to [facility] and was tested for flu and covid which were both negative. Pt sts he took the medication given for a viral infection and sts he is just getting worse. Pt sts he has a bad cough , greenish yellow sputum production and sts he has busted a blood vessel in his right eye from coughing so much and so hard chest congestion nasal congestion yellow drainage, gre en drainage, getting worse Examination Category Sub-Category Detail Notes Category Not es ENT/Respiratory Oral cavity : erythema without exudate on pharynx Sinuses : tender maxillary sin uses bilaterally, frontal sinuses tender Ears: auditory canals norm al bilaterally, TM's WNL Heart : RRR, normal S1 S2, n o murmurs Lungs: Scattered rhonchi an d occasional wheezes General Appearance: appears not to feel well. Mildly dyspneic Nose : congested
--- OUTSIDE RECORDS SUMMARY | 2025-02-05 06:30 | XMS_ITS ---
Author Organization [facility] Address [address] [facility] [address] [place] [id number] Care Team Providers Care Liability Claims Manager Name Role Phone Brittny Gomez Primary Care Provider BRITTNY GOMEZ Unavailable Unavailable Allergies No Known Allergies Results Component Value Reference Range Notes CBC Fingerstick (in house) Reviewed date:02/05/2025 11:25:52 AM Interpretation: Performing Lab: Notes/Report: wbc 7.2 3.5 - 10 lym 36.8% 15 - 50 mid 7.5% 2 - 15 gran 55.7% 35 - 80 rbc 5.30 3.5 - 5.5 hgb 15.4 11.5 - 16.5 hct 45.9 35 - 55 mcv 85.5 75 - 100 mch 29.1 25 - 35 mchc 33.7 31 - 38 plat 196 100 - 400 REASON FOR VISIT poss ear infection Medications Medication SIG (Take, Route, Frequency, Duration) Notes Start Date End Date Status Lisinopril 2.5 MG TAKE 1 TABLET BY NIK TH EVERY DAY FOR 90 DAYS; Duration: 90 days Active Albuterol Sulfate HFA 108 (90 Base) MCG/ACT 1 puff as needed Inhalation every 4 hrs Active Metoprolol Tartrate 25 MG 1/2 tablet wit h food Orally Twice a day; Duration: 90 days Active Pantoprazole Sodium 40 MG 1 tab(s) orall y once a day; Duration: 90 days Active Montelukast Sodium 10 MG TAKE 1 TABLET B Y MOUTH EVERY DAY FOR 90 DAYS; Duration: 90 days Active Trelegy Ellipta 100-62.5-25 MCG/ACT 1 puff Inhalation Once a day 02/05/2025 Active dexAMETHasone 2 MG 1 tablet Orally ever y 12 hrs; Duration: 5 day(s) 02/05/2025 Active Pravastatin Sodium 80 MG 1 tab(s) orally once a day; Duration: 90 days Active Aspirin 81 MG 1 tab(s) orally once a day Active Nitroglycerin 0.[address] 1 TABLET UNDE R TONGUE EVERY 5 MINS, UP TO 3 DOSES NEEDED FOR CHEST PAIN; Duration: 25 Active Vitamin D3 50 MCG (1999 UT) 1 tab(s) ora lly once a day; Duration: 30 day(s) Active Vital Signs Blood pressure systolic 120 mm Hg 02/06/20 25 Blood pressure diastolic 90 mm Hg 025 Heart Rate 89 /min 02/05/2025 Height 70 in 02/05/2025 Weight 216 lbs 02/05/2025 BMI 30.99 kg/m2 02/05/2025 Encounters Encounter Location Date Provider Diagnosis [facility] 36 [facility] [address] [place] [phone] 02/05/2025 Brittny Gomez Acute URI J06.9 ; Otalgia of left ear H92.02 and Chronic obstructive pulmonary disease, unspecified J44.9 Assessments Encounter Date Diagnosis (ICD Code) Assessment Notes Treatment Notes Treatment Clinical Notes Section Notes 02/05/2025 Acute URI (ICD-10 - J06.9) 02/05/2025 Otalgia of left ear (ICD-10 - H92.02) 02/05/2025 Chronic obstructive pulmonary disease, unspecified (ICD-10 - J44.9) Plan Of Treatment Medication Medication Name Sig Start Date Stop Date Notes Wixela Inhub 250-50 MCG/ACT INHALE 1 PUFF TWICE A DAY Trelegy Ellipta 100-62.5-25 MCG/ACT 1 puff Inhalation Once a day 02/05/2025 dexAMETHasone 2 MG 1 tablet Orally ever y 12 hrs; Duration: 5 day(s) 02/05/2025 Next Appt Details Follow Up: via phone to repo rt progress, Reason: Provider Name:Brittny dexter, 03/12/2026 09:30:00 AM, [address] [facility], [address], [place], [phone], Progress Notes * IQRA TURKDOB: [birth year] (70 yo M)Acc No.[id number]:02/05/2025 Progress Notes Patient: IQRA HILLIARD Provider: Michael Gomez M.D. :1955 A ge:69 Y S ex:Male Date:02/05/2025 Address:[id number] Subjective: * Chief Complaints: * 1 . Poss ear infection. * HPI: E NT/respiratory: 69 year old male presents with c/o ear pain P t complains of lt ear pain for 3-4 days. Pt states he does have yellowish drainage coming from ear as well.? * ROS: D ERMATOLOGY: no R lily. [...] Colonscopy, Polyps x 2 , Cardiac Stent- [place] 06/23/2014 , RT Lung, Wedge Biopsy, Benign- [place] 02/2022. * Hospitalization/Major Diagno stic Procedure: S tomach Pain- [facility] 07/18/2011, Myocardial Infarction- [place] 06/23-, LT Index Finegr Laceration- [facility] 05/24/2016, Heat Exhaustion- [facility] 07/02/2016, Head Laceration- [facility] 07/21/2016. * Family History: F [...] tab(s) orally once a day , Taking Nitroglycerin 0.[address] 1 TABLET UNDER TONGUE EVERY 5 MINS, UP TO 3 DOSES NEEDED FOR CHEST PAIN , Taking Pravastatin Sodium 80 MG Tablet 1 tab(s) orally once a day , Taking Pantoprazole Sodium 40 MG Tablet Delayed Release 1 tab(s) orally once a day , Taking Montelukast Sodium 10 MG Tablet TAKE 1 TABLET BY MOUTH EVERY DAY FOR 90 DAYS , Taking Metoprolol Tartrate 25 MG Tablet 1/2 tablet with food Orally Twice a day , Taking Lisinopril 2.5 MG Tablet TAKE 1 TABLET BY MOUTH EVERY DAY FOR 90 DAYS , Taking Albuterol Sulfate HFA 108 (90 Base) MCG/ACT Aerosol Solution 1 puff as needed Inhalation every 4 hrs , Taking Wixela Inhub 250-50 MCG/ACT Aerosol Powder Breath Activated INHALE 1 PUFF TWICE A DAY , Discontinued Benzonatate 200 MG Capsule 1 capsule Orally Three times a day , Discontinued Cefuroxime Axetil 500 MG Tablet 1 tablet Orally every 12 hrs , Discontinued Eazwtqjdh-Eqtjqlpe-GC 30-1-20 MG/5ML Liquid 5 -10 ml Orally every 6 hrs prn , Medication List reviewed and reconciled with the patient * Allergies: N .K.D.A. Objective: * Vitals: W t:216, Temp:98.3, BP:120/90, HR:89, Nurse:mellissa, Ht: 70, BMI:30.99. * Examination: E NT/Respiratory: General Appearance: N AD. E ars: cerumen present bilaterally, tympanic membranes normal bilaterally. S inuses : t enderness present on left maxillary sinus. O ral cavity : erythema without exudate on pharynx. Assessment: * Assessment: 1. A cute URI - J06.9 (Primary) 2 . O talgia of left ear - H92.02 ? 3 . C hronic obstructive pulmonary disease, unspecified - J44.9 Plan: * Treatment: Value Reference Range w bc 7.2 3.5 - 10 * l ym 36.8% 15 - 50 * m id 7.5% 2 - 15 * g ran 55.7% 35 - 80 * r bc 5.30 3.5 - 5.5 * h gb 15.4 11.5 - 16.5 * h ct 45.9 35 - 55 * m cv 85.5 75 - 100 * m ch 29.1 25 - 35 * m chc 33.7 31 - 38 * p lat 196 100 - 400 * Aniyah Herrera 02/05/2025 11:25:4 4 AM > , Provider reviewed results while patient in office. 2.?Otalgia of left ear? Start dexAMETHasone Tablet, 2 MG, 1 tablet, Orally, every 12 hrs, 5 day(s), 10 Tablet, Refills 0. ?3.?Chronic obstructive pulmonary disease, unspecified? Stop Wixela Inhub Aerosol Powder Breath Activated, 250-50 MCG/ACT, INHALE 1 PUFF TWICE A DAY;?Start Trelegy Ellipta Aerosol Powder Breath Activated, 100-62.5-25 MCG/ACT, 1 puff, Inhalation, Oncea day, 30, Refills 11.?? * Procedure Codes: 3 6416 CAPILLARY BLOOD DRAW, 58725 CBC WITH AUTO DIFF, 3074F SYST BP LT 130 MM HG, 3080F DIAST BP = 90 MM HG * Follow Up: v ia phone to report progress * Images: Billing Information: * Visit Code: 06069 Office Visit, Est Pt., Level 3. * Procedure Codes: 32965 CAPILLARY BLOOD DRAW. 90218 CBC WITH AUTO DIFF. 3074F SYST BP LT 130 MM HG. 3080F DIAST BP = 90 MM HG. * Electronic signature of Jaylyn Gomez MD on 09/26/2025 at 08:01 AM EDT Sign off status: Pending * Provider: Michael Gomez M.D. Date: 0 02/05/2025 Generated for Alicia west/[place]/eTransmitting on: 1 08:01 AM EDT History and Physical Notes * HPI (History of Present Illness) Category Sub-Category Detail Notes Category Not es ENT/respiratory ear pain Pt complains of lt ear pain for 3-4 days. Pt states he does have yellowish drainage coming from ear as well Examination Category Sub-Category Detail Notes Category Not es ENT/Respiratory Oral cavity : erythema without exudate on pharynx Sinuses : tenderness present o n left maxillary sinus Ears: cerumen present bila terally, tympanic membranes normal bilaterally General Appearance: NAD
--- OUTSIDE RECORDS SUMMARY | 2025-03-12 05:00 | XMS_ITS ---
Author Organization [facility] Address [address] [facility] [address] [place] [id number] Care Team Providers Care Senior Dentist Name Role Phone Brittny Gomez Primary Care Provider [phone] BRITTNY GOMEZ Unavailable Unavailable Allergies No Known Allergies Results Component Value Reference Range Notes P-Comprehensive Metabolic Pa yaneli (CMP) Reviewed date:03/13/2025 01:46:20 PM Interpretation: Performing Lab: Notes/Report: Test performed by [facility], [address] , [address], [place] [address] Noble Yoon MD, Batch Tank Controller CLIA: [id number] Sodium 139 135-145 mmol/L Potassium 4.3 3.5-5.3 mmol/L Chloride 105 97-108 mmol/L CO2 21 22-32 mmol/L Glucose 120 65-99 mg/dL BUN 10 8-23 mg/dL Creatinine 1.09 0.70-1.30 mg/dL Calcium 9.5 8.6-10.4 mg/dL eGFR by Creatinine 74 >59 mL/min/1.73m2 Protein 7.0 6.0-8.3 g/dL Albumin 4.2 3.5-5.3 g/dL Alkaline Phosphatase 90 40-129 IU/L ALT (SGPT) 42 <5-55 IU/L AST (SGOT) 46 <5-46 IU/L Bilirubin, Total 0.5 <0.2-1.2 mg/dL A/G Ratio 1.5 1.1-2.5 P-Hemoglobin A1C Reviewed date:03/13/2025 01:46:20 PM Interpretation: Performing Lab: Notes/Report: Test performed by [facility] [address] [place], [place] [address] [place] [address] Noble Yoon MD, Batch Tank Controller CLIA: [id number] Hemoglobin A1C 5.7 <5.7 % The following HbA1c ranges recommended by the [place] [employer] (ADA) may be used as an aid in the diagnosis of diabetes mellitus. HbA1c Suggested Diagnosis >=6.5% Diabetic 5.7% - 6.4% Pre-Diabetic <5.7% Non-Diabetic P-Lipid Panel Reviewed date:03/13/2025 01:46:20 PM Interpretation: Performing Lab: Notes/Report: Test performed by [facility] [address] [place] [address] [place], [place] [address] Noble Yoon MD, Batch Tank Controller CLIA: [id number] Cholesterol 172 <200 mg/dL Triglycerides 151 <150 mg/dL HDL Cholesterol 31 >39 mg/dL Cholesterol / HDL Ratio 5.55 0.00-4.99 Ratio Non-HDL Cholesterol 141 <130 mg/dL LDL Cholesterol (Calculation) 111 <130 mg/dL LDL Cholesterol Levels* Less than 100 mg/dL Optimal 100 to 129 mg/dL Near Optimal/ Above Optimal 130 to 159 mg/dL Borderline High 160 to 189 mg/dL High 190 mg/dL and above Very High * Categories as recommended by the 2004 ATPIII guidelines LDL/HDL Ratio 3.6 <3.3 Ratio LDL Cholesterol Patient History Test Date: 03/21/2024 LDL Results: 107 Units: mg/dL % Change: - Test Date: 09/11/2024 LDL Results: 128 Units: mg/dL % Change: +19% Test Date: 03/12/2025 LDL Results: 111 Units: mg/dL % Change: -13% P-TSH reflex to FT4 Reviewed date:03/13/2025 01:46:20 PM Interpretation: Performing Lab: Notes/Report: Test performed by [facility] [address] [place], [place] [address] [facility] [place] , [place] [address] Noble Yoon MD, Batch Tank Controller CLIA: [id number] TSH reflex to FT4 1.79 0.43-5.25 mU/L P-Microalbumin/Creatinine, R andom Urine Sample Reviewed date:03/13/2025 01:46:20 PM Interpretation: Performing Lab: Notes/Report: Test performed by [facility] [address] [place], [place] [address] [facility] [place] , [place] [address] Noble Yoon MD, Batch Tank Controller CLIA: [id number] Albumin/Creatinine Ratio, Urine 3 0-30 ug/m g Microalbumin, Urine, Random 0.7 Creatinine, Urine 226.3 Estimated Average Glucose Reviewed date:03/13/2025 01:46:20 PM Interpretation: Performing Lab: Notes/Report: Test performed by [facility] , [address], [place] [address] Noble Yoon MD, Batch Tank Controller MANUEL: [id number] Estimated Average Glucose (eAG) 117 Estimated Average Glucose (eAG) is calculated using the equation eAG = (28.7 x HbA1c) - 46.7 based on the guidelines established by the ADA. If the patient has certain diseases including kidney disease, sickle cell anemia, thalassemia, or is taking medications such as dapsone, erythropoietin, or iron, eAG should not be evaluated. REASON FOR VISIT 6 mths Medications Medication SIG (Take, Route, Frequency, Duration) Notes Start Date End Date Status Pantoprazole Sodium 40 MG 1 tab(s) orall y once a day; Duration: 90 days Active Vitamin D3 50 MCG (1999 UT) 1 tab(s) ora lly once a day; Duration: 30 day(s) Active Pravastatin Sodium 80 MG 1 tab(s) orally once a day; Duration: 90 days Active Metoprolol Tartrate 25 MG 1/2 tablet wit h food Orally Twice a day; Duration: 90 days Active Lisinopril 2.5 MG TAKE 1 TABLET BY NIK TH EVERY DAY FOR 90 DAYS; Duration: 90 days Active Cetirizine HCl 10 MG 1 tablet Orally Onc e a day; Duration: 90 days 03/12/2025 Active Montelukast Sodium 10 MG TAKE 1 TABLET B Y MOUTH EVERY DAY FOR 90 DAYS; Duration: 90 days Active Albuterol Sulfate HFA 108 (90 Base) MCG/ACT 1 puff as needed Inhalation every 4 hrs Active Trelegy Ellipta 100-62.5-25 MCG/ACT 1 puff Inhalation Once a day 02/05/2025 Active Nitroglycerin 0.[address] 1 TABLET UNDE R TONGUE EVERY 5 MINS, UP TO 3 DOSES NEEDED FOR CHEST PAIN; Duration: 25 Active Aspirin 81 MG 1 tab(s) orally once a day Active Problems Problem Type SNOMED Code ICD Code Onset Dates Problem Status W/U Status Risk Notes Problem Body mass index 30.00 to 34.99 ([id number] 107) BMI 31.0-31.9,a dult (Z68.31) Active confirmed Vital Signs Blood pressure systolic 124 mm Hg 03/12/20 25 Blood pressure diastolic 90 mm Hg 04/16/2 025 Heart Rate 77 /min 03/12/2025 Height 70 in 03/12/2025 Weight 217 lbs 03/12/2025 BMI 31.13 kg/m2 03/12/2025 Encounters Encounter Location Date Provider Diagnosis Matt [address] [facility] [address] [id number] 03/12/2025 Brittny Gomez Essential hypertensi on I10 ; Dyslipidemia E78.5 ; IFG (impaired fasting glucose) R73.01 ; Chronic obstructive pulmonary disease, unspecified J44.9 ; Acute gout of right foot, unspecified cause M10.9 ; Coronary artery disease involving united [place] coronary artery of united [place] heart without angina pectoris I25.10 ; Gastroesophageal reflux disease without esophagitis K21.9 ; Allergic rhinitis, unspecified seasonality, unspecified trigger J30.9 and BMI 31.0-31.9,adult Z68.31 Assessments Encounter Date Diagnosis (ICD Code) Assessment Notes Treatment Notes Treatment Clinical Notes Section Notes 03/12/2025 Essential hypertension (ICD-10 - I10) Blood pressure journal 03/12/2025 Dyslipidemia (ICD-10 - E78.5) 03/12/2025 IFG (impaired fasting glucose) (ICD-10 - R73.01) 03/12/2025 Chronic obstructive pulmonary disease, unspecified (ICD-10 - J44.9) 03/12/2025 Acute gout of right foot, unspecified cause (ICD-10 - M10.9) 03/12/2025 Coronary artery disease involving united [place] coronary artery of united [place] heart without angina pectoris (ICD-10 - I25.10) 03/12/2025 Gastroesophageal reflux disease without esophagitis (ICD-10 - K21.9) 03/12/2025 Allergic rhinitis, unspecified seasonality, unspecified trigger (ICD-10 - J30.9) 03/12/2025 BMI 31.0-31.9,adult (ICD-10 - Z68.31) Plan Of Treatment Medication Medication Name Sig Start Date Stop Date Notes Pantoprazole Sodium 40 MG 1 tab(s) orall y once a day; Duration: 90 days Pravastatin Sodium 80 MG 1 tab(s) orally once a day; Duration: 90 days Metoprolol Tartrate 25 MG 1/2 tablet wit h food Orally Twice a day; Duration: 90 days Lisinopril 2.5 MG TAKE 1 TABLET BY NKI TH EVERY DAY FOR 90 DAYS; Duration: 90 days Cetirizine HCl 10 MG 1 tablet Orally Onc e a day; Duration: 90 days 03/12/2025 Montelukast Sodium 10 MG TAKE 1 TABLET B Y MOUTH EVERY DAY FOR 90 DAYS; Duration: 90 days Treatment Notes Assessment Notes Essential hypertension Blood pressure byron urnal Next Appt Details Follow Up: 6 Months, Reason: Provider Name:Brittny Drew ry, 03/12/2026 09:30:00 AM, [address], [address], [place], [place], [id number], Progress Notes * IQRA TURKDOB: [birth year] (70 yo M)Acc No.[id number]:03/12/2025 Progress Notes Patient: IQRA HILLIARD Provider: Michael Gomez M.D. :1955 A ge:69 Y S ex:Male Date:03/12/2025 Address:[address] [place], [place] [id number] Subjective: * Chief Complaints: * 1 . 6 mths. * HPI: C ardiology: 69 year old male presents with c/o BloodPressure at Home P t here for 6 mo f/u [...] Colonscopy, Polyps x 2 , Cardiac Stent- [facility] 06/23/2014 , RT Lung, Wedge Biopsy, Benign- [facility] 02/2022. * Hospitalization/Major Diagno stic Procedure: S tomach Pain- [facility] 07/18/2011, Myocardial Infarction- [facility] 06/23-, LT Index Finegr Laceration- [facility] 05/24/2016, Heat Exhaustion- [facility] 07/02/2016, Head Laceration- [facility] 07/21/2016. * Family History: [...] needed Inhalation every 4 hrs , Taking Trelegy Ellipta 100-62.5-25 MCG/ACT Aerosol Powder Breath Activated 1 puff Inhalation Once a day , Discontinued dexAMETHasone 2 MG Tablet 1 tablet Orally every 12 hrs , Medication List reviewed and reconciled with the patient * Allergies: N .K.D.A. Objective: * Vitals: W t: 217, Temp: 97.8, BP: 124/90, HR: 77, Nurse: mellissa, Ht: 70, BMI:31.13. * Examination: C ardiology: General Appearance: p leasant, NAD. H eart sounds: R RR, normal S1, S2. L ungs: c lear, no rales or wheezes. E xtremities: n o leg edema. P eripheral pulses: 2 plus bilateral. Assessment: * Assessment: 1. E ssential hypertension - I10 (Primary) 2 . D yslipidemia - E78.5 ? 3 . I FG (impaired fasting glucose) - R73.01 4 . C hronic obstructive pulmonary disease, unspecified - J44.9 5 . A cute gout of right foot, unspecified cause - M10.9 6 . C oronary artery disease involving [place] coronary artery of [place] heart without angina pectoris - I25.10 7 . G astroesophageal reflux disease without esophagitis - K21.9 8 . A llergic rhinitis, unspecified seasonality, unspecified trigger - J30.9 9 . B WA 31.0-31.9,adult - Z68.31 ? Plan: * Treatment: Value Reference Range A /G Ratio 1.5 1.1-2.5 - * A lbumin 4.2 3.5-5.3 - g/dL * A lkaline Phosphatase 90 40-129 - IU/L * A LT (SGPT) 42 <5-55 - IU/L * A ST (SGOT) 46 <5-46 - IU/L * B ilirubin, Total 0.5 <0.2-1.2 - mg/dL * B UN 10 8-23 - mg/dL * C alcium 9.5 8.6-10.4 - mg/dL * C hloride 105 97-108 - mmol/L * C O2 21 L 22-32 - mmol/L * C reatinine 1.09 0.70-1.30 - mg/dL * G lucose 120 H 65-99 - mg/dL * P otassium 4.3 3.5-5.3 - mmol/L * S odium 139 135-145 - mmol/L * P rotein 7.0 6.0-8.3 - g/dL * e GFR by Creatinine 74 >59 - mL/min/1.73m2 * Brittny Gomez 03/13/2025 1 2:54:39 PM > Sent to to inform of satisfactory results. Tracy Crystal 03/13/2025 01:45:03 PM > pt informed of results and requested a copy be mailed to him ?LAB: P-Microalbumin/Creatinine, Random Urine Sample (Collection Date & Time - 03/12/2025 08:28 AM)* Value Reference Range A lbumin/Creatinine Ratio, Urine 3 0-30 - ug /mg * C reatinine, Urine 226.3 - mg/dL * M icroalbumin, Urine, Random 0.7 - mg/dL * Brittny Gomez 03/13/2025 1 2:54:39 PM > Sent to to inform of satisfactory results. TracyCrystal 03/13/2025 01:45:03 PM > pt informed of results and requested a copy be mailed to him Notes: Blood pressure journal??2.?Dyslipidemia? Refill Pravastatin Sodium Tablet, 80 MG, 1 tab(s), orally, once a day, 90 days, 90, Refills 1.?LAB: P-Comprehensive Metabolic Panel (CMP) (Collection Date & Time - 03/12/2025 08:28 AM)* Value Reference Range A /G Ratio 1.5 1.1-2.5 - * A lbumin 4.2 3.5-5.3 - g/dL * A lkaline Phosphatase 90 40-129 - IU/L * A LT (SGPT) 42 <5-55 - IU/L * A ST (SGOT) 46 <5-46 - IU/L * B ilirubin, Total 0.5 <0.2-1.2 - mg/dL * B UN 10 8-23 - mg/dL * C alcium 9.5 8.6-10.4 - mg/dL * C hloride 105 97-108 - mmol/L * C O2 21 L 22-32 - mmol/L * C reatinine 1.09 0.70-1.30 - mg/dL * G lucose 120 H 65-99 - mg/dL * P otassium 4.3 3.5-5.3 - mmol/L * S odium 139 135-145 - mmol/L * P rotein 7.0 6.0-8.3 - g/dL * e GFR by Creatinine 74 >59 - mL/min/1.73m2 * Brittny Gomez 03/13/2025 1 2:54:39 PM > Sent to to inform of satisfactory results. Crystal Molina 03/13/2025 01:45:03 PM > pt informed of results and requested a copy be mailed to him ?LAB: P-Lipid Panel (Collection Date & Time - 03/12/2025 08:28 AM)* Value Reference Range C holesterol / HDL Ratio 5.55 H 0.00-4.99 - Ratio * C holesterol 172 <200 - mg/dL * H DL Cholesterol 31 L >39 - mg/dL * L DL Cholesterol (Calculation) 111 <130 - mg/d L * L DL/HDL Ratio 3.6 H <3.3 - Ratio * N on-HDL Cholesterol 141 H <130 - mg/dL * T riglycerides 151 H <150 - mg/dL * Brittny Gomez 03/13/2025 1 2:54:39 PM > Sent to to inform of satisfactory results. Crystal Molina 03/13/2025 01:45:03 PM > pt informed of results and requested a copy be mailed to him ?LAB: P-TSH reflex to FT4 (Collection Date & Time - 03/12/2025 08:28 AM)* Value Reference Range T SH reflex to FT4 1.79 0.43-5.25 - mU/L * Brittny Gomez 03/13/2025 1 2:54:39 PM > Sent to to inform of satisfactory results. Crystal Molina 03/13/2025 01:45:03 PM > pt informed of results and requested a copy be mailed to him 3.?IFG (impaired fasting glucose)?LAB: P-Comprehensive Metabolic Panel (CMP) (Collection Date & Time - 03/12/2025 08:28 AM)* Value Reference Range A /G Ratio 1.5 1.1-2.5 - * A lbumin 4.2 3.5-5.3 - g/dL * A lkaline Phosphatase 90 40-129 - IU/L * A LT (SGPT) 42 <5-55 - IU/L * A ST (SGOT) 46 <5-46 - IU/L * B ilirubin, Total 0.5 <0.2-1.2 - mg/dL * B UN 10 8-23 - mg/dL * C alcium 9.5 8.6-10.4 - mg/dL * C hloride 105 97-108 - mmol/L * C O2 21 L 22-32 - mmol/L * C reatinine 1.09 0.70-1.30 - mg/dL * G lucose 120 H 65-99 - mg/dL * P otassium 4.3 3.5-5.3 - mmol/L * S odium 139 135-145 - mmol/L * P rotein 7.0 6.0-8.3 - g/dL * e GFR by Creatinine 74 >59 - mL/min/1.73m2 * Brittny Gomez 03/13/2025 1 2:54:39 PM > Sent to to inform of satisfactory results. Crystal Molina 03/13/2025 01:45:03 PM > pt informed of results and requested a copy be mailed to him ?LAB: P-Hemoglobin A1C (Collection Date & Time - 03/12/2025 08:28 AM)* Value Reference Range H emoglobin A1C 5.7 H <5.7 - % * Brittny Gomez 03/13/2025 1 2:54:39 PM > Sent to to inform of satisfactory results. Crystal Molina 03/13/2025 01:45:03 PM > pt informed of results and requested a copy be mailed to him 4.?Gastroesophageal reflux disease without esophagitis? Refill Pantoprazole Sodium Tablet Delayed Release, 40 MG, 1 tab(s), orally, once a day, 90 days, 90, Refills 1.??5.?Allergic rhinitis, unspecified seasonality, unspecified trigger? Refill Montelukast Sodium Tablet, 10 MG, TAKE 1 TABLET BY MOUTH EVERY DAY FOR 90 DAYS, 90 days, 90 Tablet, Refills 1;?Start Cetirizine HCl Tablet, 10 MG, 1 tablet, Orally, Once a day, 90 days, 90 Tablet, Refills 1.?? * Labs: * L ab: Estimated Average Glucose (Collection Date & Time - 03/12/2025 08:28 AM) Value Reference Range E stimated Average Glucose 117 - mg/dL * [facility], IT support 03/13/2025 05:10:05 : This order was created by the Interface. Brittny Gomez 03/13/2025 12:54:39 PM > Sent to [facility] to inform of satisfactory results. Crystal Molina 03/13/2025 01:45:03 PM > pt informed of results and requested a copy be mailed to him * Procedure Codes: 3 044F HG A1C LEVEL LT 7.0%, 3074F SYST BP LT 130 MM HG, 3080F DIAST BP = 90 MM HG * Follow Up: 6 Months * Images: Billing Information: * Visit Code: 55357 Office Visit, Est Pt., Level 4. * Procedure Codes: 3044F HG A1C LEVEL LT 7.0%. 3074F SYST BP LT 130 MM HG. 3080F DIAST BP = 90 MM HG. * Electronic signature of Jaylyn Gomez MD on 09/26/2025 at 08:03 AM EDT Sign off status: Pending * Provider: Michael Gomez M.D. Date: 0 03/12/2025 Generated for Alicia west/Marbella/Mitchell on: 1 08:03 AM EDT History and Physical Notes * HPI (History of Present Illness) Category Sub-Category Detail Notes Category Not es Cardiology BloodPressure at Home Pt here fo r 6 mo f/u on hypertension, states he is doing well and does not have any concerns Hyperlipidemia Pt is fasting today Examination Category Sub-Category Detail Notes Category Not es Cardiology Lungs: clear, no rales or wheezes Heart sounds: RRR, normal S1, S2 Extremities: no leg edema Peripheral pulses: 2 plus bilateral General Appearance: pleasant, NAD
--- OUTSIDE RECORDS SUMMARY | 2025-09-11 05:15 | XMS_ITS ---
Author Organization [facility] Address [address] [facility] [address] [place] [id number] Care Team Providers Care Lead Burner Name Role Phone Brittny Gomez Primary Care Provider BRITTNY GOMEZ Unavailable Unavailable Allergies No Known Allergies Results Component Value Reference Range Notes Glucose (In-House) Reviewed date:09/12/2025 10:41:41 AM Interpretation:Normal Performing Lab: Notes/Report: Normal blood glucose 100 74 - 106 mg/dL Glycohemoglobin A1c (in hous e) Reviewed date:09/12/2025 10:41:41 AM Interpretation:Normal Performing Lab: Notes/Report: Normal glycohemoglobin 5.4% 5 - 6.5 % P-Comprehensive Metabolic Pa yaneli (CMP) Reviewed date:09/12/2025 10:41:41 AM Interpretation:Glu 106, AST 59 Performing Lab: Notes/Report: Test performed by [facility] , [address], [place] [address] Noble Yoon MD, Front Office Supervisor CLIA: [id number] Sodium 140 135-145 mmol/L Potassium 4.4 3.5-5.3 mmol/L Chloride 105 97-108 mmol/L CO2 24 20-32 mmol/L Glucose 106 65-99 mg/dL BUN 9 8-23 mg/dL Creatinine 0.93 0.70-1.30 mg/dL Calcium 9.4 8.6-10.4 mg/dL eGFR by Creatinine 89 >59 mL/min/1.73m2 Protein 6.9 6.0-8.3 g/dL Albumin 4.2 3.5-5.3 g/dL Alkaline Phosphatase 79 40-129 IU/L ALT (SGPT) 48 <5-55 IU/L AST (SGOT) 59 <5-46 IU/L Bilirubin, Total 0.5 <0.2-1.2 mg/dL A/G Ratio 1.6 1.1-2.5 P-Lipid Panel Reviewed date:09/12/2025 10:41:41 AM Interpretation:HDL 34, Non-HDL 130, LDL 106, LDL/HDL 3.11 Performing Lab: Notes/Report: Test performed by [facility] [address] [place] [address] , [address], [place] [address] Noble Yoon MD, Front Office Supervisor CLIA: [id number] Lipid Panel Footnote See Below *Based on optimal reference values. Please refer to the DOS for additional information regarding diagnostic lipid reference ranges, patient management based on the recently updated lipid guidelines ([place] [employer]/[place] [employer] Task Force on Clinical Practice Guidelines (2018), and pediatric diagnostic lipid reference values (<18 years old). Total Cholesterol 164 <200 mg/dL Triglycerides 121 <150 mg/dL HDL Cholesterol 34 >40 mg/dL Total Cholesterol / HDL Ratio* 4.82 <4.99 Rati o Non-HDL Cholesterol 130 <130 mg/dL LDL Cholesterol (Calculation) 106 <100 mg/dL LDL / HDL Ratio* 3.11 <2.49 Ratio LDL Cholesterol Patient History Test Date: 09/11/2024 LDL Results: 128 Units: mg/dL % Change: +19% Test Date: 03/12/2025 LDL Results: 111 Units: mg/dL % Change: -13% Test Date: 09/11/2025 LDL Results: 106 Units: mg/dL % Change: -4% REASON FOR VISIT 6 months Medications Medication SIG (Take, Route, Frequency, Duration) Notes Start Date End Date Status Cetirizine HCl 10 MG 1 tablet Orally Onc e a day; Duration: 90 days Active Montelukast [...] puff Inhalation Once a day 02/05/2025 Active Aspirin 81 MG 1 tab(s) orally once a day Active Pantoprazole Sodium 40 MG 1 tab(s) orall y once a day; Duration: 90 days Active Albuterol Sulfate HFA 108 (90 Base) MCG/ACT 1 puff as needed Inhalation every 4 hrs Active Pravastatin Sodium 80 MG 1 tab(s) orally once a day; Duration: 90 days Active Nitroglycerin 0.[address] 1 TABLET UNDE R TONGUE EVERY 5 MINS, UP TO 3 DOSES NEEDED FOR CHEST PAIN; Duration: 25 Active Vitamin D3 50 MCG (1999) 1 tab(s) ora lly once a day; Duration: 30 day(s) Active Immunizations Vaccine Route Administration Date Status Comme nts Fluzone High Dose (65yr and older) IM Intramuscular 09/11/2025 Administered Vital Signs Blood pressure systolic 122 mm Hg 09/11/20 25 Blood pressure diastolic 84 mm Hg 025 Heart Rate 73 /min 09/11/2025 Height 70 in 09/11/2025 Weight 220 lbs 09/11/2025 BMI 31.56 kg/m2 09/11/2025 Encounters Encounter Location Date Provider Diagnosis [facility] [address] [place], [place] [id number] 09/11/2025 Brittny Gomez Essential hypertensi on I10 ; IFG (impaired fasting glucose) R73.01 ; Chronic obstructive pulmonary disease, unspecified J44.9 ; Gastroesophageal reflux disease without esophagitis K21.9 ; Depressive disorder F32.9 ; Dyslipidemia E78.5 ; Screening for lung cancer Z12.2 ; Personal history of nicotine dependence Z87.891 ; Allergic rhinitis, unspecified seasonality, unspecified trigger J30.9 and Encounter for immunization Z23 Assessments Encounter Date Diagnosis (ICD Code) Assessment Notes Treatment Notes Treatment Clinical Notes Section Notes 09/11/2025 Essential hypertension (ICD-10 - I10) 09/11/2025 IFG (impaired fasting glucose) (ICD-10 - R73.01) 09/11/2025 Chronic obstructive pulmonary disease, unspecified (ICD-10 - J44.9) 09/11/2025 Gastroesophageal reflux disease without esophagitis (ICD-10 - K21.9) 09/11/2025 Depressive disorder (ICD-10 - F32.9) 09/11/2025 Dyslipidemia (ICD-10 - E78.5) 09/11/2025 Screening for lung cancer (ICD-10 - Z12.2) 09/11/2025 Personal history of nicotine dependence (ICD-10 - Z87.891) 09/11/2025 Allergic rhinitis, unspecified seasonality, unspecified trigger (ICD-10 - J30.9) 09/11/2025 Encounter for immunization (ICD-10 - Z23) Plan Of Treatment Medication Medication Name Sig Start Date Stop Date Notes Cetirizine HCl 10 MG 1 tablet Orally Onc e a day; Duration: 90 days Montelukast Sodium 10 MG TAKE 1 TABLET B Y MOUTH EVERY DAY FOR 90 DAYS; Duration: 90 days Metoprolol Tartrate 25 MG 1/2 tablet wit h food Orally Twice a day; Duration: 90 days Lisinopril 2.5 MG TAKE 1 TABLET BY NIK TH EVERY DAY FOR 90 DAYS; Duration: 90 days Pantoprazole Sodium 40 MG 1 tab(s) orall y once a day; Duration: 90 days Pravastatin Sodium 80 MG 1 tab(s) orally once a day; Duration: 90 days Pending Test Test Name Order Date CT Scan : Chest, low dose 09/11/2025 Next Appt Details Follow Up: 6 Months, Reason: Provider Name:Brittny Drew , 03/12/2026 09:30:00 AM, [address] [facility] [address] [facility], [address] , [place], [place], [id number], Progress Notes * IQRA TURKDOB: [birth year] (70 yo M)Acc No.[id number]:09/11/2025 Progress Notes Patient: Michael CHAPINJIM IQRA Provider: Michael Gomez M.D. :1955 A ge:69 Y S ex:Male Date:09/11/2025 Address:[address] [place], [place] [id number] Subjective: * Chief Complaints: * 1 . 6 months. * HPI: C ardiology: 69 year old male presents with c/o Blood Pressure Elevated P t here for 6 month follow up on Hypertension. Pt states he is doing well and has no concerns at this time. Pt would like his flu shot. c/o Hyperlipidemia P t is fasting today. * Medical History: C oronary Artery Disease, Myocardial Infarction 06/23/2014, Hyperlipidemia, Esophageal Reflux, COPD, PFT's 09/2014, Allergic Rhinitis, Hyperuricemia, 50 pack year smoking history, quit 2021, Allergic rhinitis. * Surgical History: A ppendectomy , Finger , Double Hernia Repair 1992, Hernia Repair 2005, Colonscopy, Polyps x 2 , Cardiac Stent- [place] 06/23/2014, RT Lung, Wedge Biopsy, Benign- [place] 02/2022. * Hospitalization/Major Diagno stic Procedure: S tomach Pain- [facility] ER 07/18/2011, Myocardial Infarction- [place] 06/23-, LT Index Finegr Laceration- [facility] 05/24/2016, Heat Exhaustion- [facility] 07/02/2016, Head Laceration- [facility] 07/21/2016. * Family History: F ather: 79 yrs. M other: alive 74 yrs. P aternal Grand Father: .?Paternal Grand Mother: . M aternal Grand Father: . M aternal Grand Mother: . 2 daughter(s) - healthy. . no known colon cancer in family. * Social History: C URRENT TOBACCO USE: No S moking Status: P atient does NOT [...] DOSES NEEDED FOR CHEST PAIN , Taking Albuterol Sulfate HFA 108 (90 Base) MCG/ACT Aerosol Solution 1 puff as needed Inhalation every 4 hrs , Taking Trelegy Ellipta 100-62.5-25 MCG/ACT Aerosol Powder Breath Activated 1 puff Inhalation Once a day , Taking Pravastatin Sodium 80 MG Tablet 1 tab(s) orally once a day , Taking Pantoprazole Sodium 40 MG Tablet Delayed Release 1 tab(s) orally once a day , Taking Montelukast Sodium 10 MG Tablet TAKE 1 TABLET BY MOUTH EVERY DAY FOR 90 DAYS , Taking Lisinopril 2.5 MG Tablet TAKE 1 TABLET BY MOUTH EVERY DAY FOR 90 DAYS , Taking Metoprolol Tartrate 25 MG Tablet 1/2 tablet with food Orally Twice a day , Taking Cetirizine HCl 10 MG Tablet 1 tablet Orally Once a day , Medication List reviewed and reconciled with the patient * Allergies: N .K.D.A. Objective: * Vitals: W t: 220, Temp: 98.2, BP: 122/84, HR: 73, Nurse: SF, Ht: 70, BMI:31.56. * Examination: C ardiology: General Appearance: p leasant, NAD. H eart sounds: R RR, normal S1, S2. L ungs: c lear, no rales or wheezes. E xtremities: n o leg edema. P eripheral pulses: 2 plus bilateral. Assessment: * Assessment: 1. E ssential hypertension - I10 (Primary) 2 . I FG (impaired fasting glucose) - R73.01 3 . C hronic obstructive pulmonary disease, unspecified - J44.9? 4. G astroesophageal reflux disease without esophagitis - K21.9 5 . D epressive disorder - F32.9 6 . D yslipidemia - E78.5 7 .?Screening for lung cancer - Z12.2 8 . P ersonal history of nicotine dependence - Z87.891 9 . A llergic rhinitis, unspecified seasonality, unspecified trigger - J30.9 1 0. E ncounter for immunization - Z23 Plan: * Treatment: Value Reference Range A /G Ratio 1.6 1.1-2.5 - * A lbumin 4.2 3.5-5.3 - g/dL * A lkaline Phosphatase 79 40-129 - IU/L * A LT (SGPT) 48 <5-55 - IU/L * A ST (SGOT) 59 H <5-46 - IU/L * B ilirubin, Total 0.5 <0.2-1.2 - mg/dL * B UN 9 8-23 - mg/dL * C alcium 9.4 8.6-10.4 - mg/dL * C hloride 105 97-108 - mmol/L * C O2 24 20-32 - mmol/L * C reatinine 0.93 0.70-1.30 - mg/dL * G lucose 106 H 65-99 - mg/dL * P otassium 4.4 3.5-5.3 - mmol/L * S odium 140 135-145 - mmol/L * P rotein 6.9 6.0-8.3 - g/dL * e GFR by Creatinine 89 >59 - mL/min/1.73m2 * Crystal Molina 09/12/2025 10 :41:33 AM EDT > See phone encounter 2.?IFG (impaired fasting glucose)?LAB: P-Comprehensive Metabolic Panel (CMP) (Collection Date & Time - 09/11/2025 08:44 AM)?Glu 106, AST 59* Value Reference Range A /G Ratio 1.6 1.1-2.5 - * A lbumin 4.2 3.5-5.3 - g/dL * A lkaline Phosphatase 79 40-129 - IU/L * A LT (SGPT) 48 <5-55 - IU/L * A ST (SGOT) 59 H <5-46 - IU/L * B ilirubin, Total 0.5 <0.2-1.2 - mg/dL * B UN 9 8-23 - mg/dL * C alcium 9.4 8.6-10.4 - mg/dL * C hloride 105 97-108 - mmol/L * C O2 24 20-32 - mmol/L * C reatinine 0.93 0.70-1.30 - mg/dL * G lucose 106 H 65-99 - mg/dL * P otassium 4.4 3.5-5.3 - mmol/L * S odium 140 135-145 - mmol/L * P rotein 6.9 6.0-8.3 - g/dL * e GFR by Creatinine 89 >59 - mL/min/1.73m2 * Crystal Molina 09/12/2025 10 :41:33 AM EDT > See phone encounter ?LAB: Glucose (In-House) (Collection Date & Time - 09/11/2025)?Normal* Value Reference Range b lood glucose 100 74 - 106 mg/dL * Ailyn Shah 09/11/2025 11 :13:02 AM EDT > Crystal Molina 09/12/2025 10:41:33 AM EDT > See phone encounter ?LAB: Glycohemoglobin A1c (in house) (Collection Date & Time - 09/11/2025)? Normal* Value Reference Range g lycohemoglobin 5.4% 5 - 6.5 % * [place] Ailyn 09/11/2025 11 :13:23 AM EDT > Crystal Molina 09/12/2025 10:41:33 AM EDT > See phone encounter 3.?Gastroesophageal reflux disease without esophagitis? Refill Pantoprazole Sodium Tablet Delayed Release, 40 MG, 1 tab(s), orally, once a day, 90 days, 90Tablet, Refills 1.??4.?Dyslipidemia? Refill Pravastatin Sodium Tablet, 80 MG, 1 tab(s), orally, once a day, 90 days, 90, Refills 1.?LAB: P-Comprehensive Metabolic Panel (CMP) (Collection Date & Time - 09/11/2025 08:44 AM)?Glu 106, AST 59* Value Reference Range A /G Ratio 1.6 1.1-2.5 - * A lbumin 4.2 3.5-5.3 - g/dL * A lkaline Phosphatase 79 40-129 - IU/L * A LT (SGPT) 48 <5-55 - IU/L * A ST (SGOT) 59 H <5-46 - IU/L * B ilirubin, Total 0.5 <0.2-1.2 - mg/dL * B UN 9 8-23 - mg/dL * C alcium 9.4 8.6-10.4 - mg/dL * C hloride 105 97-108 - mmol/L * C O2 24 20-32 - mmol/L * C reatinine 0.93 0.70-1.30 - mg/dL * G lucose 106 H 65-99 - mg/dL * P otassium 4.4 3.5-5.3 - mmol/L * S odium 140 135-145 - mmol/L * P rotein 6.9 6.0-8.3 - g/dL * e GFR by Creatinine 89 >59 - mL/min/1.73m2 * Crystal Molina 09/12/2025 10 :41:33 AM EDT > See phone encounter ?LAB: P-Lipid Panel (Collection Date & Time - 09/11/2025 08:44 AM)?HDL 34, Non-HDL 130, LDL 106, LDL/HDL 3.11* Value Reference Range C holesterol / HDL Ratio 4.82 <4.99 - Ratio * C holesterol 164 <200 - mg/dL * H DL Cholesterol 34 L >40 - mg/dL * L DL Cholesterol (Calculation) 106 H <100 - mg/d L * L DL/HDL Ratio 3.11 H <2.49 - Ratio * N on-HDL Cholesterol 130 H <130 - mg/dL * T riglycerides 121 <150 - mg/dL * L ipid Panel Footnote See Below - * Crystal Molina 09/12/2025 10 :41:33 AM EDT > See phone encounter 5.?Screening for lung cancer?Imaging: CT Scan : Chest, low dose* Purvi Aleman 09/11/2025 09: 54:37 AM EDT > faxed to [facility] Scheduling 6.?Personal history of nicotine dependence?Imaging: CT Scan : Chest, low dose* Purvi Aleman 09/11/2025 09: 54:37 AM EDT > faxed to [facility] Scheduling 7.?Allergic rhinitis, unspecified seasonality, unspecified trigger? Refill Montelukast Sodium Tablet, 10 MG, TAKE 1 TABLET BY MOUTH EVERY DAY FOR 90 DAYS, 90 days, 90,Refills 1;?Refill Cetirizine HCl Tablet, 10 MG, 1 tablet, Orally, Once a day, 90 days, 90, Refills 1.?? * Immunizations: Fluzone High Dose (65yr and older) : 0.5 mL (Route: Intramuscular) given by Ailyn Shah on Right Deltoid (Encounter for immunization) * Procedure Codes: G 2211 Complex e/[place], [address] GLUCOSE TEST, 88696 GLYCATED HEMOGLOBIN TEST, Modifiers: QW , 3044F HG A1C LEVEL LT 7.0%, 1036F TOBACCO NON-USER, 3074F SYST BP LT 130 MM HG, 3079F DIAST BP 80-89 MM HG * Follow Up: 6 Months * Images: Billing Information: * Visit Code: 81770 Office Visit, Est Pt., Level 4. * Procedure Codes: G2211 Complex e/[place]. [address] GLUCOSE TEST. 57766 GLYCATED HEMOGLOBIN TEST. Modifiers: QW 3044F HG A1C LEVEL LT 7.0%. 1036F TOBACCO NON-USER. 3074F SYST BP LT 130 MM HG. 3079F DIAST BP 80-89 MM HG. * Electronic signature of Jaylyn Gomez MD on 09/26/2025 at 08:01 AM EDT Sign off status: Pending * Provider: Michael Gomez M.D. Date: Generated for Alicia west/Marbella/Jovansmitting on: 08:01 AM EDT History and Physical Notes * HPI (History of Present Illness) Category Sub-Category Detail Notes Category Not es Cardiology Blood Pressure Elevated Pt here for 6 month follow up on Hypertension. Pt states he is doing well and has no concerns at this time. Pt would like his flu shot Hyperlipidemia Pt is fasting today Examination Category Sub-Category Detail Notes Category Not es Cardiology Lungs: clear, no rales or wheezes Heart sounds: RRR, normal S1, S2 Extremities: no leg edema Peripheral pulses: 2 plus bilateral General Appearance: pleasant, NAD
--- OUTSIDE RECORDS SUMMARY | 2025-09-26 08:01 | XMS_ITS | Clinical Summary ---
Author Organization [employer] ([place], [place], [place], [place]) Address [address] [place] [address] Care Team Providers Care Licensed Journeyman Electrician Name Role Phone Jerzy Gomez MD Primary Care Provider [phone] Mark Dockery PA-C Unavailable [phone] Allergies Active Allergy Reactions Criticality Noted Date Comments Iodine 03/12/2024 Atorvastatin 03/12/2024 Medications lisinopriL (PRINIVIL,ZESTRI L) 2.5 MG tablet Take 1 tablet (2.5 mg total) by mouth daily. Active pravastatin (PRAVACHOL) 80 MG tablet Take 1 tablet (80 mg total) by mouth daily. Active aspirin 81 MG EC tablet Take 1 tablet (81 mg total) by mouth daily. Active pantoprazole (PROTONIX) 40 MG tablet Take 1 tablet (40 mg total) by mouth daily. Active montelukast (SINGULAIR) 10 mg tablet Take 1 tablet (10 mg total) by mouth nightly. Active magnesium oxide (MAG-OX) 400 mg (241.3 mg magnesium) tablet Take 1 tablet (400 mg total) by mouth daily. Active cyanocobalamin (VITAMIN B-12) 1000 MCG tablet Take 1 tablet (1,000 mcg total) by mouth daily. Active cholecalciferol, vitamin D3, 50 mcg (2,000 unit) Cap Take 1 capsule (2,000 Units total) by mouth daily. Active metoprolol tartrate (LOPRESSOR) 25 MG tabletIndication s:Primary hypertension Take 0.5 tablets (12.5 mg total) by mouth 2 (two) times daily. 60 tablet 11 03/13/20 24 Active albuterol HFA (VENTOLIN HFA) 90 mcg/actuation inhaler ALBUTEROL SULFATE HFA 108 (90 Base) MCG/ACT AERS Active nitroglycerin (NITROSTAT) 0.4 MG SL tablet NITROGLYCERIN 0.4 MG SUBL Active Wixela Inhub 250-50 mcg/dose diskus inhaler 1 puff 2 (two) times daily. 06/19/20 24 Active Active Problems Problem Noted Date Diagnosed Date Coronary artery disease invo lving mentasta coronary artery of mentasta heart without angina pectoris 03/12/2024 Primary hypertension 03/12/2024 Mixed hyperlipidemia 03/12/2024 Family History Medical History Relation Name Comments Heart failure Father Hyperlipidemia Father Heart failure Mother Hyperlipidemia Mother Relation Name Status Comments Father Mother Social History Tobacco Use Types Packs/Day Years Used Date Smoking Tobacco: Former Cigarettes Smokeless Tobacco: Never Tobacco Cessation:Counseling Given: Not Answered Alcohol Use Standard Drinks/Week Comments Yes 0 (1 standard drink = 0.6 oz pur e alcohol) Food Insecurity Answer Date Recorded Food run out past 12 months Not on file 11/27 Food did not last past 12 months Not on file 12/15/2023 Employment Answer Date Recorded Help finding and keeping a job Not on file 0 12/15/2023 Family and Community Support Answer Landry e Recorded Help with Day to Day Activities Not on file 12/15/2023 Feeling Lonely or Isolated Not on file 12/15 Educational Attainment Answer Date Vitor rded Speak language other than Sri Lankan at home Not on file 12/15/2023 Want help with school or training Not on file 12/15/2023 Substance Use Answer Date Recorded Used prescription meds for non-medical reasons N ot on file 12/15/2023 Used illegal drugs past 12 months Not on file 12/15/2023 Sex and Gender Information Value Date Recorded Sex Assigned at Not on file Legal Sex Male 4:49 PM CDT Gender Identity Not on file Sexual Orientation Not on file Last Filed Vital Signs Vital Sign Reading Time Taken Comments Blood Pressure 123/72 08/01/2024 9:46 AM EDT Pulse 84 08/01/2024 9:46 AM EDT Temperature 36.4 C (97.6 F) 03/27/2024 7:19 AM EDT Respiratory Rate 16 08/01/2024 9:46 AM EDT Oxygen Saturation 97% 08/01/2024 9:46 AM EDT Inhaled Oxygen Concentration - - Weight 97.4 kg (214 lb 12.8 oz) 08/01/2024 9:46 AM EDT Height 182.9 cm (6') 08/01/2024 9:46 AM EDT Body Mass Index 29.13 08/01/2024 9:46 AM EDT Plan of Treatment Health Maintenance Due Date Last Done Comments CT Colonography 1955 Colonoscopy 1955 Colorectal Cancer Screening 1955 FOBT/FIT 1956 Fit-DNA (Cologuard) 1955 Sigmoidoscopy 1956 Depression Screening (12+) 1968 Hepatitis C Screening 1974 DTAP/TDAP/TD VACCINES (1 - Tdap) 1975 Pneumococcal 50+ years (1 of 2 - PCV) 1975 Respiratory Syncytial Virus (RSV) Adult or (1 - Risk 60-74 years 1-dose series) 2016 Falls Risk Screening 11/27/2024 COVID-19 VACCINE (1 - season) 07/28/202505/2021, 04/02/2021 Influenza Vaccine (#1) 2025 Tobacco Cessation Counseling and Screening (12+) 08/01/2025 08/01/2024 Shingles Vaccine (Zoster) Completed 05/14/2019, 08/2019 Insurance BLUE CROSS/BLUE SHIELD Care Teams Licensed Journeyman Electrician Relationship Specialty Start Date End Date Jerzy Gomez MD [address] [place] [facility] [address] [place] [id number] PCP - General Family Medicine 03/13/24 Mark Dockery PA-C [address], [facility] [address] [place] [address] Cardiology 03/13/24
--- OUTSIDE RECORDS SUMMARY | 2025-09-26 08:01 | XMS_ITS | Referral Summary ---
Author Organization [employer] ([place], [place], [place], [place]) Address [address] [place] [address] Care Team Providers Care Pop Singer Name Role Phone Jerzy Gomez MD Primary Care Provider [phone] Mark Dockery PA-C Unavailable [phone] Allergies Active Allergy Reactions Criticality Noted Date [...] Diagnosed Date Coronary artery disease invo lving anvik coronary artery of anvik heart without angina pectoris 03/12/2024 Primary hypertension 03/12/2024 Mixed hyperlipidemia 03/12/2024 Social History Tobacco Use Types Packs/Day Years [...] Date Vitor rded Speak language other than Welsh at home Not on file 12/15/2023 Want [...] 08/01/2024 9:46 AM EDT Plan of Treatment Not on file Insurance BLUE CROSS/BLUE SHIELD Care Teams Pop Singer Relationship Specialty Start Date End Date Jerzy Gomez MD [address] [place] [facility] [address] [place] [address] PCP - General Family Medicine 03/13/24 Mark Dockery PA-C [address], [facility] [address] [place] [address] Cardiology 03/13/24
--- OUTSIDE RECORDS SUMMARY | 2025-09-26 08:01 | XMS_ITS | Encounter Summary ---
Author Organization [employer] ([place], [place], [place], [place]) Address [address] [place] [address] Care Team Providers Care Automobile Repair Service Estimator Name Role Phone Jerzy Gomez MD Primary Care Provider [phone] Mark Dockery PA-C Unavailable [phone] Encounter Details Date Type Department Care Team (Late st Contact Info) Description 12/20/2018 Transcribed Document [facility] Family Medicine [facility] [place] [address] ProviderNigel MD [address] [place] [address] Social History Tobacco Use Types Packs/Day Years Used Date Smoking Tobacco: Never Assessed Sex and Gender Information Value Date Recorded Sex Assigned at Not on file Legal Sex Male 4:49 PM CDT Gender Identity Not on file Sexual Orientation Not on file documented as of this encounter Miscellaneous Notes * [employer]ner Conversion Note - Nigel Chamberlain MD - 12/20/2018 7:05 PM FIRMWARE ENGINEER DATE OF STUDY: 12/20/2018 LEXISCAN MYOVIEW PERFUSION STUDY INDICATION: Chest pain. REFERRING PHYSICIAN: Dr. Jerzy Gomez. FINDINGS: Resting electrocardiogram: Normal sinus rhythm, first-degree heart block, intraventricular conduction delay, nonspecific ST-T wave changes. Lexiscan stress: Standard Lexiscan stress protocol. Peak heart rate response of 102 beats per minute, blood pressure response to 108/68 mmHg were achieved. There is no arrhythmia. The stress electrocardiogram is negative for ischemic ST changes. 10.8 mCi of Myoview was administered prior to rest scan and 32.6 mCi prior to the post stress scan. MYOVIEW PERFUSION DATA: Reversible defect: None. Fixed defects: There is moderate fixed defect involving the basal, mid, distal, inferior wall. Left ventricular function: Gated measurement of left ventricular systolic function post stress was 62%. No regional wall motion abnormality. IMPRESSION: Probably normal Lexiscan Myoview perfusion study. No evidence of ischemia. Fixed inferior defect most likely represent diaphragmatic attenuation. Normal left ventricular systolic function post stress. Nickolas Noriega M.D. Dict: 12/20/2018 19:05:46 Trans: 12/20/2018 19:20:59 CC1: Nickolas Noriega M.D. CC2: Dr. Jerzy Gomez Electronically signed by [facility], [facility] Conversion Ad Clerk Cerner at 03/16/2023 1:54 PM CDT documented in this encounter Plan of Treatment Not on file documented as of this encounter Visit Diagnoses Not on filedocumented in this encounter Care Teams Automobile Repair Service Estimator Relationship Specialty Start Date End Date Jerzy Gomez MD [address] [facility] [address] [place] [address] PCP - General Family Medicine 03/13/24 Mark Dockery PA-C [address], [facility] [address] [place] [address] Cardiology 03/13/24 documented as of this encounter
--- OUTSIDE RECORDS SUMMARY | 2025-09-26 08:01 | XMS_ITS | Clinical Summary ---
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 Role Phone Amador Todd MD Conditions or Problems Problem Name Problem Code Onset Date Status Entry Date Provider Comment Standard Description Annotate Health advice, education, or counseling 641405821 (SNOMED CT) 12/24 Active 12/24 Amador Todd MD Procedure carried out on subject CAD (coronary artery disease) 94240095 (SNOMED CT) 07/14 Active 07/14 Amador Todd MD Coronary arteriosclerosis GERD 044684764 (SNOMED CT) 07/14 Active 07/14 Amador Todd MD Gastroesophageal reflux disease Histoplasmosi s 50398066 (SNOMED CT) 07/14 Active 07/14 Amador Todd MD Histoplasmosis COPD 75513138 (SNOMED CT) 06/28 Active 06/28 Nuris Ayala Chronic obstructive pulmonary disease Cavitary lung lesions J98.4 (ICD-10-CM ) 06/28 Active 06/28 Nuris Ayala Other disorders of lung Granulomatous lung disease 96048656 (SNOMED CT) 06/28 Active 06/28 Nuris Ayala Disorder of lung Medications Medication Instructions Start Date Stop Date Generic Name [facility] Provider TOLSURA 65 MG CAPS Take 2 capsule by mouth once a day 07/14 itraconazole [id number] Amador Todd MD DICYCLOMINE HCL 20 MG TABS 06/30 dicyclomine 14128916672 Brenda Vivian METHYLPREDNISOLONE 4 MG TBPK 06/30 methylprednisolone 45398361115 Brenda Vivian HYDROCODONE-ACETAMI NOPHEN 7.5-325 MG TABS 06/30 hydrocodone-acetami nophen 09263381342 Brenda Vivian GAVILYTE-G 236 GM SOLR 06/30 peg 3350-electrolytes 40662414676 Brenda Vivian DICLOFENAC SODIUM 1 % GEL 06/30 diclofenac sodium 08802992568 Brenda Vivian AMOXICILLIN 500 MG CAPS 06/30 amoxicillin 81874227743 Brenda Vivian SUTAB 0487-726-756 MG TABS TAKE DIRECTED 06/30 sod sulf-pot chloride-mag sulf 19096259786 Brenda Vivian HYDROCODONE-ACETAMI NOPHEN 5-325 MG TABS 06/30 hydrocodone-acetami nophen 24456627989 Brenda Vivian aspirin 81 mg capsule once a day aspirin Brenda Vivian VITAMIN D3 50 MCG (2000 UT) TABS once a day cholecalciferol (vitamin d3) 95431749804 Brenda Vivian zinc acetate 50 mg (zinc) capsule once a day zinc acetate Brenda Vivian SUTAB 0487-495-974 MG TABS TAKE DIRECTED 06/30 sod sulf-pot chloride-mag sulf 13420782876 Migue Talia STIOLTO RESPIMAT 2.5-2.5 MCG/ACT AERS tiotropium-oloda ter ol 06776639957 Migue Talia LINZESS 145 MCG CAPS linaclotide 24621599353 Migue Talia DICLOFENAC SODIUM 1 % GEL 06/30 diclofenac sodium 85513585586 Migue Talia GAVILYTE-G 236 GM SOLR 06/30 peg 3350-electrolytes 96389810690 Migue Talia METOPROLOL TARTRATE 25 MG TABS metoprolol tartrate 35288592262 Tristan is Clawson CHLORHEXIDINE GLUCONATE 0.12 % SOLN chlorhexidine gluconate 45133796293 Migue Talia METHYLPREDNISOLONE 4 MG TBPK 06/30 methylprednisolone 47828516893 Migue Clawson PANTOPRAZOLE SODIUM 40 MG TBEC pantoprazole 96552754712 Migue Clawson LISINOPRIL 2.5 MG TABS lisinopril 99131497336 Migue Clawson MONTELUKAST SODIUM 10 MG TABS montelukast 64671690094 Migue Talia ALBUTEROL SULFATE HFA 108 (90 Base) MCG/ACT AERS albuterol sulfate 23761066035 Tristan is Talia NITROGLYCERIN 0.4 MG SUBL nitroglycerin 25962530880 Migue Talia DICYCLOMINE HCL 20 MG TABS 06/30 dicyclomine 74200879126 Migue Clawson PRAVASTATIN SODIUM 80 MG TABS pravastatin 23880031085 Migue Clawson HYDROCODONE-ACETAMI NOPHEN 7.5-325 MG TABS 06/30 hydrocodone-acetami nophen 20390916625 Migue Clawson HYDROCODONE-ACETAMI NOPHEN 5-325 MG TABS 06/30 hydrocodone-acetami nophen 37740229261 Migue Talia CLOPIDOGREL BISULFATE 75 MG TABS clopidogrel 20660805469 Migue Talia AMOXICILLIN 500 MG CAPS 05/27 amoxicillin 50379486609 Migue Clawson Medications Administered No information available. Allergies, Adverse Reactions, Alerts Allergy Name Reaction Description Start Date Severity Statu s Provider LIPITOR Mild Active Migue Ca rtwright IODINE SOLN Mild Active Migue Talia Results Date Name Value Unit Range Flag Description Lab Report: CBC WITH AUTO DI FFERENTIAL IMMATUREGRAN 0.01 10*3/MM3 0.00-0.05 Immature granulocytes [#/volume] in Blood BASO# 0.07 10*3/mm3 0.00-0.20 Basophils [#/vol ume] in Blood EOS ABSLT 0.18 10*3/uL 0.00-0.40 Eosinophi ls [#/volume] in Blood MONOSCT AUTO 0.63 10*3/uL 0.10-0.90 Monocy traci [#/volume] in Blood by Automated count LYMPHCT AUTO 3.38 10*3/mm3 0.70-3.10 H Lymph ocytes [#/volume] in Blood by Automated count ABS NEUTROPH 3.13 10*3/uL 1.70-7.00 Neutro phils [#/volume] in Blood IMM GRANU % 0.1 % 0.0-0.5 Immature granulocytes/100 leukocytes in Blood % EOS AUTO 2.4 % 0.3-6.2 Eosinophil s/100 leukocytes in Blood by Automated count MONOCYTE % 8.5 % 5.0-12.0 Monocytes /100 leukocytes in Blood by Automated count LYMPHOCY BF 45.7 % 19.6-45.3 H lymphoc ytes as percent of body fluid leukocytes NEUTROP BF 42.4 % 42.7-76.0 L Neutroph ils/100 leukocytes in Body fluid PLATELETS 266 10*3/mm3 140-450 Platelets [#/volume] in Blood by Automated count RDW_ 11.9 12.3-15.4 L RDW, no uni ts MCHC 34.0 G/DL 31.5-35.7 MCHC [Mass/ volume] by Automated count MCH 28.2 pg 26.6-33.0 MCH [Entiti c mass] by Automated count MCV 82.9 fL 79.0-97.0 MCV [Entiti c volume] by Automated count HCT 46.7 % 37.5-51.0 Hematocrit [Volume Fraction] of Blood by Automated count HGB 15.9 g/dL 13.0-17.7 Hemoglobin [Mass/volume] in Blood RBC 5.63 10*6/mm3 4.14-5.80 Erythrocyt es [#/volume] in Blood by Automated count WBC 7.40 10*3/mm3 3.40-10.8 0 Leukocytes [#/volume] in Blood by Automated count Lab Report: COMPREHENSIVE ME TABOLIC PANEL [id number] 84.5 mL/min/1.73 >60.0 GE use only - fo r [employer] import when terms are not otherwise specified ANIONGAP 10.0 mmol/L 5.0-15.0 anion gap, serum BUN/CREAT 8.1 7.0-25.0 Urea nitrogen/Creatinine [Mass Ratio] in Serum or Plasma BILI TOTAL 0.5 mg/dL 0.0-1.2 Bilirubin. total [Mass/volume] in Serum or Plasma ALK PHOS 88 U/L 39-117 Alkaline ismael sphatase [Enzymatic activity/volume] in Blood SGOT (AST) 23 U/L 1-40 Aspartate aminotransferase [Enzymatic activity/volume] in Serum or Plasma SGPT (ALT) 34 U/L 1-41 Alanine aminotransferase [Enzymatic activity/volume] in Serum or Plasma ALBUMIN 4.10 g/dL 3.50-5.20 Albumin [Mass/volume] in Serum or Plasma PROTEIN, TOT 6.8 g/dL 6.0-8.5 Protein [Mass/volume] in Serum or Plasma CALCIUM 9.2 mg/dL 8.6-10.5 Calcium [Moles/volume] in Serum or Plasma CO2 24.0 mmol/L 22.0-29.0 Carbon diox lilli, total [Moles/volume] in Venous blood CHLORIDE 106 mmol/L 98-107 Chloride [Moles/volume] in Serum or Plasma POTASSIUM 4.1 mmol/L 3.5-5.2 Potassium [Moles/volume] in Serum or Plasma SODIUM 140 mmol/L 136-145 Sodium [Moles/volume] in Serum or Plasma CREATININE 0.99 mg/dL 0.76-1.27 Creatini ne [Mass/volume] in Serum or Plasma BUN 8 mg/dL 8-23 Urea nitrogen [Mass/volume] in Serum or Plasma GLUCOSE SER 123 mg/dL 65-99 H Glucose [Mass/volume] in Serum or Plasma Office Visit: 5 CIGARET SMKG yes Tobacco smoking status Office Visit: 9 MEDS REVIEW Done Documenta tion of current medications (procedure) SMOK STATUS Former smoker Tobacco smoking status Plan of Care Type Date Detail Pending order Histoplasmosis U rinary AG Pending order Continue oral an tibiotics Pending order CMP Pending order Histoplasmosis U rinary AG Pending order CMP Pending order New Oral Antibio tic Pending order CMP Pending order CBC with Differe ntial Pending order EKG; 12 lead Pending order Quantiferon Gold TB Assay Pending order Cryptococcus Ant igen Serum Pending order Galactomanon Pending order Blastomyces Urin lei Antigen Pending order Histoplasmosis U rinary AG Pending order HIV 1/2 atb/ag 4 th generation with cascade reflex Procedures Code Procedure Name Date Entry Date CPT-Cooral Continue oral antibiotics 18/08/22 CPT-06538 CMP CPT-20996 Histoplasmosis Urinary AG 20 18/07/18 CPT-84929 CMP CPT-supriya New Oral Antibiotic CPT-11508 CMP [id number] CBC with Differential 2021 CPT: EKG EKG; 12 lead CPT-42980 Quantiferon Gold TB Assay 20 18/07/04 CPT-23102 Cryptococcus Antigen Serum 2 CPT-gala Galactomanon CPT-78266 Blastomyces Urinary Antigen CPT-69723 Histoplasmosis Urinary AG 20 18/07/04 CPT-896913 HIV 1/2 atb/ag 4th g eneration with cascade reflex Vital Signs Date Name Value Unit Description BMI (Body Mass Index) 27.83 kg/m2 Bod y Mass Index (Ratio) Body Temperature 97.7 [degF] temperat ure E&M BP Diastolic 90 mm[Hg] blood pressu re, diastolic BP Systolic 155 mm[Hg] blood pressur e, systolic Heart Rate 76 /min pulse rate Respiratory Rate 18 /min respirat ory rate E&M Weight Measured 205.2 [lb_av] weight E& M Weight Measured 205.2 [lb_av] weight E& M Height 72 [in_us] height E&M Immunizations No information available. Advance Directives Directive Description Start Date NO DIRECTIVES ESTABLISHED AT THIS TIME
--- OUTSIDE RECORDS SUMMARY | 2025-09-26 08:01 | XMS_ITS | Clinical Summary ---
Author Organization 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 Active montelukast (SINGULAIR) 10 MG tablet Take 10 mg by mouth Every Night. Active lisinopril (PRINIVIL,ZESTRI L) 2.5 MG tablet Take 2.5 mg by mouth Daily. Active Active Problems No known active problems Immunizations Immunization Administration Dates Next Due Fluzone (or Fluarix & Flulaval for VFC) >6mos Shingrix 05/14/2019,03/06/2019 Family History Medical History Relation Name Comments Heart disease Father Cancer Mother Heart disease Mother Relation Name Status Comments Father Mother Social History Tobacco Use Types Packs/Day Years Used Date Smoking Tobacco: Former Cigarettes 1.5 43 Abuse Screen Answer Date Recorded Unsafe at Home or Work/School Not on file Feels Threatened by Someone? Not on file 10/2023 Does Anyone Keep You from Co ntacting Others or Doint Things Outside the Home? Not on file 09/07/2023 Physical Sign of Abuse Present Not on file 1 Housing Stability Answer Date Recorded Current Living Arrangements Not on file 08/27 Potentially Unsafe Housing Conditions Not on willis e 09/07/2023 Family and Community Support Answer Landry e Recorded Help with Day-to-Day Activities Not on file 09/07/2023 Lonely or Isolated Not on file 09/07/2023 Employment Answer Date Recorded Do you want help finding or keeping work or a byron b? Not on file 09/07/2023 Disabilities Answer Date Recorded Concentrating, Remembering, or Making Decisions Difficulty Not on file 09/07/2023 Doing Errands Independently Difficulty Not on fi le 09/07/2023 Education Answer Date Recorded Help with school or training? Not on file Preferred Language Not on file 09/07/2023 Sex and Gender Information Value Date Recorded Sex Assigned at Not on file Legal Sex Male 1:34 PM EST Gender Identity Not on file Sexual Orientation Not on file Last Filed Vital Signs Vital Sign Reading Time Taken Comments Blood Pressure 138/90 01/06/2020 1:48 PM EST Pulse 110 01/06/2020 1:48 PM EST Temperature 37.1 C (98.8 F) 01/06/2020 1:48 PM EST Respiratory Rate 15 01/06/2020 1:48 PM EST Oxygen Saturation 96% 01/06/2020 1:48 PM EST Inhaled Oxygen Concentration - - Weight 89.4 kg (197 lb 3.2 oz) 01/06/2020 1:48 P M EST Height 182.9 cm (6') 01/06/2020 1:48 PM EST Body Mass Index 26.75 01/06/2020 1:48 PM EST Plan of Treatment Health Maintenance Due Date Last Done Comments TDAP/TD VACCINES (1 - Tdap) 1975 COLOGUARD 2001 COLON CANCER SCREENING 5 YEA R SIGMOIDOSCOPY 2001 COLONOSCOPY 2001 [address] CANCER SCREENING [address] CT COLONOGRAPHY 2001 FECAL OCCULT BLOOD TEST 2001 FIT Testing (1 year) 2001 Pneumococcal Vaccine 50+ (1 of 1 - PCV) 2006 ANNUAL PHYSICAL 01/06/2020 HEPATITIS C SCREENING 01/06/2020 AAA SCREEN ONCE 2021 INFLUENZA VACCINE 06/27/2025 08/19/2019 COVID-19 Vaccine ( - season) 07/28/202505/2021, 04/02/2021 ZOSTER VACCINE Completed 05/14/2019, 03/06/2019 Insurance [facility] Care Teams Engineering Technical Analyst Relationship Specialty Start Date End Date Jerzy Gomez MD [address] [place] [address] PCP - General Family Medicine 01/06/20
--- NOTE | 2025-09-26 08:02 | CT_ITS ---
FINAL REPORT TECHNIQUE: Axial images were obtained from the lung apex to the mid abdomen by computed tomography. This study was performed with techniques to keep radiation doses as low as reasonably achievable (ALARA). Individualized dose reduction techniques using automated exposure control or adjustment of mA and/or kV according to the patient's size were employed. CLINICAL HISTORY: SCREENING FORMER SMOKER QUIT 4 YEARS AGO 1.5PPD X50 YEARS FINDINGS: CHEST CT LOW DOSE CTDI vol (mGy): 2.90 DLP (mGy-cm): 115.42 There is no axillary adenopathy. There is no hilar or mediastinal adenopathy. The heart is normal in size. There is moderate coronary artery calcification. There is no pericardial or pleural effusion. There is linear scarring in the right upper lobe. There is associated branching linear calcification in the right upper lobe. Moderate changes of centrilobular emphysema are noted. There is a pleural-based nodule in the anterior right middle lobe measuring 6 mm on image 52 of series 3. There is scarring at the right base and linear scarring at the left apex. There is a spiculated density at the left apex measuring 8 mm on image 14 of series 3. Limited images of the upper abdomen reveal cholecystectomy. IMPRESSION: Spiculated density at the left apex measures 8 mm. Pleural-based right middle lobe nodule measures 6 mm. Lung RADS category 4A. Recommend 3 month follow-up low-dose chest CT. Reviewed, Interpreted and Dictated by Alok Cote MD Transcribed by June Hernández Authenticated and [facility]
--- OUTSIDE RECORDS SUMMARY | 2025-09-26 08:03 | XMS_ITS | Patient Health Record ---
Author Organization [facility] Address [address] [facility] [address] [place] [id number] Care Team Providers Care Overedge Sewer Name Role Phone Brittny Gomez Primary Care Provider [phone] BRITTNY GOMEZ Unavailable Unavailable Randy Bryant Unavailable [phone] Pau Flores Unavailable [phone] Allergies No Known Allergies Results Component Value [...] - 38 plat 190 100 - 400 CBC Fingerstick (in house) Reviewed date:02/05/2025 11:25:52 [...] - 38 plat 196 100 - 400 Glucose (In-House) Reviewed date:09/12/2025 10:41:41 AM Interpretation:Normal Performing Lab: Notes/Report: Normal blood glucose 100 74 - 106 mg/dL Glycohemoglobin A1c (in hous e) Reviewed date:09/12/2025 10:41:41 AM Interpretation:Normal Performing Lab: Notes/Report: Normal glycohemoglobin 5.4% 5 - 6.5 % P-Comprehensive Metabolic Pa yaneli (CMP) Reviewed date:09/12/2025 10:41:41 AM Interpretation:Glu 106, AST 59 Performing Lab: Notes/Report: Test performed by [facility] [address], [place] [address] Noble Yoon MD, Returned Item Clerk CLIA: [id number] Sodium 140 135-145 mmol/L Potassium 4.4 3.5-5.3 [...] 3.11 Performing Lab: Notes/Report: Test performed by [facility] [address] [place], [place] [address] [employer] [address] , [address], [place] [address] Noble Yoon MD, Returned Item Clerk CLIA: [id number] Lipid Panel Footnote See Below *Based on optimal reference values. Please refer to the DOS for additional information regarding diagnostic lipid reference ranges, patient management based on the recently updated lipid guidelines ([place] [employer]/[place] Heart Association Task Force on Clinical Practice [...] Results: 106 Units: mg/dL % Change: -4% Estimated Average Glucose Reviewed date:03/13/2025 01:46:20 PM Interpretation: Performing Lab: Notes/Report: Test performed by [facility] [address] [place] [address] , [address], [place] [address] Noble Yoon MD, Returned Item Clerk CLIA: [id number] Estimated Average Glucose (eAG) 117 Estimated Average Glucose (eAG) is calculated using the equation eAG = (28.7 x HbA1c) - 46.7 based on the guidelines established by the ADA. If the patient has certain diseases including kidney disease, sickle cell anemia, thalassemia, or is taking medications such as dapsone, erythropoietin, or iron, eAG should not be evaluated. P-Microalbumin/Creatinine, R andom Urine Sample Reviewed date:03/13/2025 01:46:20 PM Interpretation: Performing Lab: Notes/Report: Test performed by [facility] [address] , [address], [place] [address] Noble Yoon MD, Returned Item Clerk CLIA: [id number] Albumin/Creatinine Ratio, Urine 3 0-30 ug/m g Microalbumin, Urine, Random 0.7 Creatinine, Urine 226.3 P-TSH reflex to FT4 Reviewed date:03/13/2025 01:46:20 PM Interpretation: Performing Lab: Notes/Report: Test performed by [facility] [address] [place] [address] , [address], [place] [address] Noble Yoon MD, Returned Item Clerk CLIA: [id number] TSH reflex to FT4 1.79 0.43-5.25 mU/L P-Lipid Panel Reviewed date:03/13/2025 01:46:20 PM Interpretation: Performing Lab: Notes/Report: Test performed by [facility] [address] , [address], [place] [address] Noble Yono MD, Returned Item Clerk CLIA: [id number] Cholesterol 172 <200 mg/dL Triglycerides 151 <150 [...] Results: 111 Units: mg/dL % Change: -13% P-Hemoglobin A1C Reviewed date:03/13/2025 01:46:20 PM Interpretation: Performing Lab: Notes/Report: Test performed by [facility] [address] [place] [address] [address] , [place] [address] Noble Yoon MD, Returned Item Clerk CLIA: [id number] Hemoglobin A1C 5.7 <5.7 % The following HbA1c ranges recommended by the [place] [employer] Association (ADA) may be used as an aid in the diagnosis of diabetes mellitus. HbA1c Suggested Diagnosis >=6.5% Diabetic 5.7% - 6.4% Pre-Diabetic <5.7% Non-Diabetic P-Comprehensive Metabolic Pa yaneli (CMP) Reviewed date:03/13/2025 01:46:20 PM Interpretation: Performing Lab: Notes/Report: Test performed by [facility] [address] [place] [address] [address] , [place] [address] Noble Yoon MD, Returned Item Clerk CLIA: [id number] Sodium 139 135-145 mmol/L Potassium 4.3 3.5-5.3 [...] 0.5 <0.2-1.2 mg/dL A/G Ratio 1.5 1.1-2.5 Medications Medication SIG (Take, Route, Frequency, Duration) Notes Start Date End Date Status Aspirin 81 MG 1 tab(s) orally once a day Active Cetirizine HCl 10 MG 1 tablet Orally Onc e a day; Duration: 90 days Active Vitamin D3 50 MCG (1999 UT) 1 tab(s) ora lly once a day; Duration: 30 day(s) Active Montelukast Sodium 10 MG TAKE 1 [...] puff Inhalation Once a day 02/05/2025 Active Albuterol Sulfate HFA 108 (90 Base) MCG/ACT 1 puff as needed Inhalation every 4 hrs Active Pravastatin Sodium 80 MG 1 tab(s) orally once a day; Duration: 90 days Active Nitroglycerin 0.[address] 1 TABLET UNDE R TONGUE EVERY 5 MINS, UP TO 3 DOSES NEEDED FOR CHEST PAIN; Duration: 25 Active Immunizations Vaccine Route Administration Date Status Comme nts Fluzone High Dose (65yr and older) IM Intramuscular 09/21/2023 Administered Fluzone High Dose (65yr and older) IM Intramuscular 09/11/2024 Administered Fluzone High Dose (65yr and older) IM Intramuscular 09/11/2025 Administered Fluzone Quad (6months&older) Unknown 08/19/2019 Administered Fluzone Quad (6months&older) IM Intramuscular 09/22/2020 Administered H1N1 flu vaccine IM Intramuscular 11/25/2009 Administered PNEUMOVAX 23 VACCINE IM Intramuscular 09/21/2023 Administe red Prevnar (PCV20) IM Intramuscular 09/11/2024 Administered Tetanus Tdap-Adacel (over 7yrs) IM Intramuscular 04/18/2011 Administered xFlu shot-36 months and older IM Intramuscular 11/25/2009 Administered Problems Problem Type SNOMED Code ICD Code Onset Dates Problem Status W/U Status Risk Notes Problem Hypokalemia (23405152) Hypokalemia (E87.6) Active confirmed Problem Essential hypertension (84681025) Essential hypertension (I10) Active confirmed Problem Chronic obstructive pulmonary disease (16291703) Chronic obstructive pulmonary disease, unspecified (J44.9) Active confirmed Problem Depressive disorder (64819305) Depressive disorder (F32.9) Active confirmed Problem Constipation (75715307) Constipation, unspecified constipation type (K59.00) Active confirmed Problem Gastroesophageal reflux disease without esophagitis (696101462) Gastroesophageal reflux disease without esophagitis (K21.9) Active confirmed Problem Atherosclerotic heart disease of [place] coronary artery without angina pectoris (089801606183139) Coronary artery disease involving [place] coronary artery of [place] heart without angina pectoris (I25.10) Active confirmed Problem Body mass index 30.00 to 34.99 (795203807236224) BMI 31.0-31.9,adult (Z68.31) Active confirmed Problem Dyslipidemia (650508839) Dyslipidemia (E78.5) Active confirmed Problem Impaired fasting glycaemia (827074625) IFG (impaired fasting glucose) (R73.01) Active confirmed Problem Gout (40549300) Acute gout of right foot, unspecified cause (M10.9) Active confirmed Problem Allergic rhinitis (59541583) Allergic rhinitis, unspecified seasonality, unspecified trigger (J30.9) Active confirmed Vital Signs Heart Rate 73 /min 09/11/2025 Blood pressure diastolic 84 mm Hg 09/11/2025 Height 70 in 09/11/2025 Blood pressure systolic 122 mm Hg 09/11/2025 Weight 220 lbs 09/11/2025 BMI 31.56 kg/m2 09/11/2025 Encounters Encounter Location Date Provider Diagnosis [facility] [address] [place], [place] [id number] 10/23/2024 Pau Crowdy Neoplasm of uncertai n behavior of skin D48.5 [facility] [address] [place], [place] [id number] 11/05/2024 R Javi Annette Acute bronchitis J20 .9 and COPD (chronic obstructive pulmonary disease) J44.9 [facility] [address] [place], [place] [id number] 02/05/2025 Brittny [place] Acute URI J06.9 ; Ot algia of left ear H92.02 and Chronic obstructive pulmonary disease, unspecified J44.9 [facility] [address] [place], [place] [id number] 03/12/2025 Brittny [place] Essential hypertensi on I10 ; Dyslipidemia E78.5 ; IFG (impaired fasting glucose) R73.01 ; Chronic obstructive pulmonary disease, unspecified J44.9 ; Acute gout of right foot, unspecified cause M10.9 ; Coronary artery disease involving [place] coronary artery of [place] heart without angina pectoris I25.10 ; Gastroesophageal reflux disease without esophagitis K21.9 ; Allergic rhinitis, unspecified seasonality, unspecified trigger J30.9 and BMI 31.0-31.9,adult Z68.31 [facility] [address] [facility] [address] [facility] [address] [place], [place] [id number] 09/11/2025 Brittny [place] Essential hypertensi on I10 ; IFG (impaired fasting glucose) R73.01 ; Chronic obstructive pulmonary disease, unspecified J44.9 ; Gastroesophageal reflux disease without esophagitis K21.9 ; Depressive disorder F32.9 ; Dyslipidemia E78.5 ; Screening for lung cancer Z12.2 ; Personal history of nicotine dependence Z87.891 ; Allergic rhinitis, unspecified seasonality, unspecified trigger J30.9 and Encounter for immunization Z23 [facility] [address] [facility] [address] [place], [place] [id number] 11/01/2024 Pau Crowrobert [facility] [address] [facility] 36 [facility] [address] [place], [place] [id number] 11/05/2024 Brittny [place] [facility] [address] [facility] [address] [place], [place] [id number] 09/12/2025 Brittny [place] Assessments Encounter Date Diagnosis (ICD Code) Assessment Notes Treatment Notes Treatment Clinical Notes Section Notes 10/23/2024 Neoplasm of uncertain behavior of skin (ICD-10 - D48.5) 1.5 x 1 cm in size 11/05/2024 Acute bronchitis (ICD-10 - J20.9) 11/05/2024 COPD (chronic obstructive pulmonary disease) (ICD-10 - J44.9) 02/05/2025 Otalgia of left ear (ICD-10 - H92.02) 02/05/2025 Acute URI (ICD-10 - J06.9) 03/12/2025 Essential hypertension (ICD-10 - I10) Blood pressure journal 03/12/2025 Dyslipidemia (ICD-10 - E78.5) 09/11/2025 Essential hypertension (ICD-10 - I10) 09/11/2025 IFG (impaired fasting glucose) (ICD-10 - R73.01) 09/11/2025 Chronic obstructive pulmonary disease, unspecified (ICD-10 - J44.9) 03/12/2025 IFG (impaired fasting glucose) (ICD-10 - R73.01) 02/05/2025 Chronic obstructive pulmonary disease, unspecified (ICD-10 - J44.9) 03/12/2025 Chronic obstructive pulmonary disease, unspecified (ICD-10 - J44.9) 09/11/2025 Gastroesophageal reflux disease without esophagitis (ICD-10 - K21.9) 09/11/2025 Depressive disorder (ICD-10 - F32.9) 03/12/2025 Acute gout of right foot, unspecified cause (ICD-10 - M10.9) 03/12/2025 Coronary artery disease involving [place] coronary artery of [place] heart without angina pectoris (ICD-10 - I25.10) 09/11/2025 Dyslipidemia (ICD-10 - E78.5) 09/11/2025 Screening for lung cancer (ICD-10 - Z12.2) 03/12/2025 Gastroesophageal reflux disease without esophagitis (ICD-10 - K21.9) 03/12/2025 Allergic rhinitis, unspecified seasonality, unspecified trigger (ICD-10 - J30.9) 09/11/2025 Personal history of nicotine dependence (ICD-10 - Z87.891) 09/11/2025 Allergic rhinitis, unspecified seasonality, unspecified trigger (ICD-10 - J30.9) 03/12/2025 BMI 31.0-31.9,adult (ICD-10 - Z68.31) 09/11/2025 Encounter for immunization (ICD-10 - Z23) Plan Of Treatment Pending Test Test Name Order Date CT Scan : Chest, low dose 09/11/2025 Next Appt Details Provider Name:Brittny dexter, 03/12/2026 09:30:00 AM, [address], [address], [place], [place], [id number], Insurance Providers Payer Name Payer Address Payer Phone Subscriber Number Group Number Insured Name Patient Relationship to Insured Coverage Start Date Coverage End Date [facility] [id number] [place] [address] [id number] [id number] Self - patient is the insured Medications Administered Medication Instructions Date of Administration Dosage Notes Dexamethasone 11/05/2024 1 mL Medical (General) History Medical History History ICD Code Coronary Artery Disease Myocardial Infarction 06/23/2014 Hyperlipidemia Esophageal Reflux COPD, PFT's 09/2014 Allergic Rhinitis Hyperuricemia 50 pack year smoking history, quit 2021 allergic rhinitis Surgical History Surgery Date(Month/Year) Appendectomy Finger Double Hernia Repair 1992 Hernia Repair 2005 Colonscopy, Polyps x 2 Cardiac Stent- [place] 06/23/2014 RT Lung, Wedge Biopsy, Benign- [place] 0 02/2022 Hospitalization History Reason Date(Month/Year) Head Laceration- [facility] 07/21/2016 Heat Exhaustion- [facility] 07/02/2016 LT Index Finegr Laceration- [facility] ER 05/24 Myocardial Infarction- [place] 06/23-2013 Stomach Pain- [facility] ER 07/18/2011
--- OUTSIDE RECORDS SUMMARY | 2025-09-26 08:03 | XMS_ITS | Continuity of Care Document ---
Author Organization [facility] MISTY Godinez [place] Address [address] [place] [address] Care Team Providers Care Heater Operator Helper Name Role Phone BRITTNY DECKER Primary Care Provider [phone] Assessment No assessment recorded. Plan of Treatment Reminders Order Date Submit Date Provider Last Modified By Organization Details Last Modified Time Details Appointments [facility] ESTABLISH ED 2024 09:00A M NAUEL MENDES PA-C Not available Not available Not available Lab None recorded. Referral None recorded. Procedures None recorded. Surgeries None recorded. Imaging None recorded. Medication Orders None recorded. Patient TargetsNo targets recorded. Patient InstructionsNo instructions recorded. Reason for Referral None Reported. Problems Name Problem SNOMED Code Status Onset Date Resolution Date Notes Provider Name and Address Organization Details Recorded Time History of Malignant melanoma [id number] Active 025 Chantel Forde [facility] 5 10:32:20 Problem Notes None recorded. Procedures Surgical History Date Name Laterality Status Provider Name and Address Organization Details Recorded Time 08/13 DAK - Cryo AK completed Chantel Rishil [facility] 5 10:28:31 05/08 DAK - Cryo AK completed Nanette Denton [facility] 5 10:51:08 05/08 MISTY - Destruction BN Lesions completed Nanette Denton [facility] 5 10:51:24 05/08 DAK - Biopsy, Tangential completed Jem Denton [facility] 5 10:55:36 11/01 Blade Biopsy w/ ED&C completed Rowena Lowery [facility] 4 10:23:53 cholecystectomy completed [facility] 2 08:50:47 Appendectomy completed [facility] 2 08:50:52 hernia repair completed [facility] 2 08:51:06 colonoscopy completed [facility] 2 08:51:28 esophagogastroduodenoscopy completed [facility] 2 08:51:32 Imaging Results None recorded. Procedure Notes None recorded. Medical Equipment None Reported. Allergies Allergen ID Allergen Name Allergen Category Reaction Reaction Severity Criticality Documentation Date Start Date Code Code System Note Provider Name and Address Organization Details Recorded Time [id number] iodine medicatio n rash Not available Not available 06/05/2025 5933 RxNorm Destiney [place]ford [facility] 5 08:06:18 Medications Name Sig Start Date Stop Date Status Note LastModified by Organization Details LastModified Time doxycycline hyclate 100 mg capsule Take 1 capsule twice a day by oral route with meal(s) for 5 days. 06/17 completed Not Available Not Available Not Available clopidogrel 75 mg tablet Take 1 tablet every day by oral route. 11/01 completed Not Available Not Available Not Available pravastatin 80 mg tablet Take 1 tablet every day by oral route. active Not Available Not Available No t Available pantoprazol e 40 mg tablet,diana yed release Take 1 tablet every day by oral route. active Not Available Not Available No t Available lisinopril 2.5 mg tablet Take 1 tablet every day by oral route. active Not Available Not Available No t Available clindamycin 1 % lotion APPLY A THIN LAYER TO THE AFFECTED AREA(S) BY TOPICAL ROUTE ONCE DAILY 2024 active Not Available Not Available Not Avai lable aspirin active Not Available Not Avail able Not Available montelukast active Not Available Not A vailable Not Available Allergy (diphenhydr amine) active Not Available Not Available Not Available metoprolol succ 25 mg-hydrochl orothiazide 12.5 mg tablet,ext. rel 24 hr Take 1 tablet every day by oral route. active Not Available Not Available No t Available Linzess 145 mcg capsule Take 1 capsule every day by oral route as directed for 30 days. 11/01 completed Not Available Not Available Not Available Wixela Inhub 100 mcg-50 mcg/dose powder for inhalation Inhale 1 puff twice a day by inhalatio n route. active Not Available Not Available No t Available albuterol sulf 90 mcg/actuati on breath activated powder inhaler,sen sor Inhale 2 puffs every 4 hours by inhalatio n route. active Not Available Not Available No t Available Sutab 1.479-0.188 -0.225 gram tablet Take as directedR un following coupon COB with patient insurance for $40 OOP. No PA required if run this way regardles s of coverage status. Bin: [id number] PCN: CN Group: [id number] ID: [id number] 31. 05/11 completed Not Available Not Available Not Available Vitals None Recorded Social History Question Answer Notes LastModified by Evodental Details LastModified Time Tobacco Smoking Status Never Smoker Marianela Sylvester [facility], [facility] 04/19/2022 08:50:33 Sunscreen Use? Yes [email or web address] Informatio n not available 08/13/2025 Tanning Bed Use No [email or web address] Informati on not available 08/13/2025 Are You Or Trying To Become ? No [email or web address] Information not available 08/13/2025 Are You On Control? No [email or web address] Information not available 08/13/2025 Are You ? No [email or web address] Information not available 08/13/2025 What Was The Date Of Your Most Recent Tobacco Screening? 08/13/2025 Information not available 08/13/2025 Has Tobacco Cessation Counseling Been Provided? No Information not available 04/19/2022 Sex: Unknown Functional Status Question Answer Note LastModified by Organizat ion Details LastModified Time Do you use any illicit or recreational drugs? No Information not available 04/19/2022 Do you or have you ever used any other forms of tobacco or nicotine? No Information not available 04/19/2022 What is your level of alcohol consumption? None Information not available 04/19/2022 Mental Status None recorded. Family History Nothing Reported. Medical History Condition Response Hernia Y Acid Reflux (GERD) Y Heart Attack ([place]) Y High Cholesterol Y Colon Polyps Y Past Encounters Encounter ID Performer Location Encounter Start Date Encounter Closed Date Diagnosis/Indication Diagnosis SNOMED-CT Code Diagnosis ICD10 Code Diagnosis IMO Codes Diagnosis Note [id number] ANUEL MENDES PA-C [address] [place] [address] 08/13/2025 09:28:37 08/13/2025 11:12:17 Multiple benign melanocytic nevi [id number] D22.5 - Benign moles seen on exam today - SPF 30 or higher broad-spec trum sunscreen recommende d with re-applica tion every 2 hours - Discussed sun protection measures, including wide-brimm ed hat, sun-protec tive clothing, and avoidance of sun during peak hours of 10am-4pm - Avoid tanning beds as these can increase the chances of all 3 types of skin cancer - Instructed to monitor for changes and to call us for appointmen t with any changing or worrisome lesions Seborrheic keratosis [id number] L82.1 - Benign overgrowth s of skin - Hereditary Senile angioma 5801175 I 78.1 - Benign blood vessel growths - Hereditary Solar lentigo 05328492 L 81.4 - Benign brown spots - Sun-induce d History of Malignant melanoma 444016727 Z85.820 [id number] 05/08/2025 - MMis - Glabella - Reiterated need for annual eye exams, sun protection SPF30+, and regular self-exam/ monthly node exams.- Discussed skin exams for 1st degree relatives as MM can have a genetic tendency.- Pt to alert provider of any new or changing symptoms for evaluation of internal spread of melanoma.- Pt to call with any new or changing lesions or additional concerns Will continue Q3 months FBSE, pt scheduled to RTC in 10/2025. Actinic keratosis 478933 007 L57.0 67333 Actinic keratoses are precancero us lesions that may progress to squamous cell carcinoma if untreated. UV light and genetics may increase risk. Treated lesions should blister, scab over, and heal within a few weeks. If treated lesion(s) does not resolve within 1-2 months, patient agrees to follow up for re-evaluat ion. Health Concerns Section Related Observation LastModified by Organization Detai ls LastModified Time None Recorded Concern Status LastModified by Organization Details LastModified Time None Recorded Payers Encounter Date Sequence Insurance Name Policy Number Policy Jennings Covered Member ID Jennings Member ID Guarantor Name 08/13/2025 1 [place] [id number] Betty Witt [id number] Romeo Witt Notes Date Note Type Note Provider Name and Address Organization Details Recorded Time 08/13/2025 text/html Patient requests a FBSE. L ocation: Full bodyLast Skin Check: 05/08/25Hx of MMIS- Glabella- (05/08/2025), tx'd w/ Mohs (06/05/2025)Area s of concern: none JOI: 06/05/25 ANUEL MENDES PA-C [address] [place], [address], [facility] 08/15/2025 13:42:36
--- OUTSIDE RECORDS SUMMARY | 2025-09-26 08:03 | XMS_ITS | Data Portability ---
Author Organization [facility], [place] Address [address] [facility] [address] [place] [address] Care Team Providers Care Airport Maintenance Laborer Name Role Phone ROMELGARTH BRITTNY Primary Care Provider [phone] Assessment No assessment recorded. Plan of Treatment Reminders Order Date Submit Date Provider Last Modified By Organization Details Last Modified Time Details Appointments [facility]ERM EST[facility]S [facility] 2024 09:00A Rosalinda MENDES PA-C Not available Not available Not available Lab culture, bacteria l 2024 025 [facility], [address] [place] [address], [phone], 05/09/2025 14:10:22 surgical patholog y study 2024 025 [facility], [address] [place] [address], [address], 05/13/2025 09:33:56 surgical patholog y study 2023 024 [facility], [address] [place] [address], [phone], 11/04/2024 11:50:40 Referral ophthalm ic plastic and reconstr uctive surgeon referral 2024 025 [email or web address] 3 Stanford Booker MD, [address] [facility], [place], [address], 06/02/2025 15:10:15 Procedures None recorded . Surgeries None recorded . Imaging None recorded . Medication Orders Linzess 145 mcg capsule 2021 022 [email or web address] [id number], [address] [place], [address], 11/01/2024 10:08:41 Patient TargetsNo targets recorded. Patient InstructionsNo instructions recorded. Reason for Referral Ophthalmic Plastic And Recon structive Surgeon Referral for Neoplasm of uncertain behavior of face Referring Physician: Barbara Cuadra, Dermatology, Encounter Date: 05/08/2025 Results Created Date Observation Date Name Description Value Unit Range Abnormal Flag Note LastModifiedBy Organization Detail LastModifiedTime 04/27/20 22 04/27/2022 SURGI [facility]OTT surgical SEE BELOW Depar tment of Patho logy Surgi scott Patho logy Repor t NAME: DALLAS HUGHES PATH. :ST-2 [id number] 22 03:40 PMCop y to: Diagn osis: A) Gastr ic biops y: Mild chron ic gastr itis with featu res sugge stive of a chemi scott gastr itis with super ficia l erosi on and occas ional small dilat ed gland s. Helic obact er not ident ified on routi ne stain . No evide nce of intes tinal metap lasia or malig heather . B) Desce nding polyp : Tubul ar adeno ma. No evide nce of high- grade dyspl jan or malig heather . SOURC E OF SPECI MEN: GASTR IC BIOPS Y COLON POLYP , DESCE NDING CLINI [facility]OTT INFOR MATIO N: GERD DYSPH AGIA HX OF POLYP S A) COLLE CTION : SPECI MEN REMOV AL: [address] D IN FIXAT PARESH: [address] COLD ISCHE APRIL TIME: 0 MINUT ES TOTAL FIXAT ION TIME: 6 HOURS Gross Descr iptio n: A) Recei aaron in forma les label ed with the patie nt's name and desig nated as minnie jakub biops y is a singl e fragm ent of pale rios tissu e measu ring 0.6 cm. Entir raina submi tted in one casse tte. B) Recei aaron in forma les label ed with the patie nt's name and desig nated as desc endin g polyp are two fragm ents of pale rios tissu e measu ring 0.2 cm each. Entir raina submi tted in one casse tte. JAB 04/27 Micro scopi c Descr iptio n: A micro scopi c exami natio n has been perfo rmed. KALA Padilla MD Yazmin d Out Date: 04/28 15:13 Page 1 of 1 Not Available [facility] [address] [place] [address], [phone], 04/28/2022 15:14:17 11/01/2011/01/2024 SURGI SCOTT surgical SEE BELOW Edna topat holog y Repor t NAME: DALLAS HUGHES PATH: [id number] PROCE DURE DATE: 11/01 SIGNO UT DATE: 11/04 Copy to: Diagn osis: Right Forea rm - BENIG N LICHE NOID KERAT OSIS SOURC E OF SPECI MEN: SKIN, R FOREA RM CLINI [facility] INFOR MATIO N: R/O: BCC VS SCC. TX'D W/ CURET TAGE. Gross Descr iptio n: The speci men consi sted of a singl e rios tissu e fragm ent which measu red 13 x 10 x 1 mm. Speci men is seria lly secti oned (x4). All is submi tted in one casse tte. Micro scopi c Descr iptio n: The epide rmis is sligh tly acant hotic and hyper kerat otic and there is a band like lymph ocyti c liche noid infla mmato ry infil trate at the derma l epide rmal junct ion. MICAELA MADDEN MD Yazmin d Out Date: 11/04 11:50 1 Not Available [facility] [address] [place] [address], [phone], 11/04/2024 11:50:40 05/08/20 25 05/09/2025 CULTU RE, ROUTI NE gram stain Rare Epith elial Cells . Rare White Blood Cells . Rare Red Blood Cells . No organ isms seen. Not Available [facility] [address] [place], [address], 05/12/2025 13:18:05 05/08/20 25 05/12/2025 CULTU RE, ROUTI NE culture, routine NORMAL SKIN DARRYL ISOLAT ED. Not Available [facility] [address] [place], [address], 05/12/2025 13:18:05 05/08/20 25 05/08/2025 [facility]GI [facility] surgical SEE BELOW Edna topat kierrag y Repor t NAME: DALLAS HUGHES PATH: [id number] PROCE DURE DATE: 05/08 SIGNO UT DATE: 05/13 Copy to: Diagn osis: Glabe lla- MELAN OCYTI C HYPER PLASI A Comme nt: SOX-1 0 immun opero xidas e stain demon strat es an incre ased numbe r of intra epide rmal melan ocyte s. The adame es borde r on the very early adame es of malig nant melan kwasi in-si tu, lenti go malig na type. This lesio n shoul d be re-ex cised . SOURC E OF SPECI MEN: SKIN, GLABE LLA CLINI [facility]OTT INFOR MATIO N: R/O: MM Gross Descr iptio n: The speci men consi sted of a rios fragm ent which was trise cted and measu red 10 x 9 x 1 mm. All submi tted in one casse tte. Micro scopi c Descr iptio n: The epide rmal basal cell row is hyper pigme nted. Withi n the epide rmis is a somew hat crowd ed proli ferat ion of small melan ocyte s. These melan ocyte s are accen tuate d by SOX-1 0. The adame es are those of solar -dez jacob melan ocyti c hyper plasi a and could repre sent the early adame es of melan kwasi in-si tu. This tucker rangel d be re-ex cised MICAELA MADDEN MD Yazmin d Out Date: 05/13 09:33 1 Not Available [facility] [address] [facility], [place], [address], 05/13/2025 09:33:55 04/19/20 22 04/11/2022 CT, abdom en + pelvi s, w/o contr ast No observ ation record ed. BARCODE [facility] [address] [facility] , [place], [address], 04/19/2022 16:41:09 Result Notes None recorded. Problems Name Problem SNOMED Code Status Onset Date Resolution Date Notes Provider Name and Address Organization Details Recorded Time History of Malignant melanoma 359893137 Active 025 Chantel woods [facility] 5 10:32:20 Problem Notes None recorded. Procedures Surgical History Date Name Laterality Status Provider Name and Address Organization Details Recorded Time 08/13 DAK - Cryo AK completed Chantel Forde [facility] 5 10:28:31 05/08 DAK - Cryo AK completed Nanette Denton [facility] 5 10:51:08 05/08 DAK - Destruction BN Lesions completed Nanette Denton [facility] 5 10:51:24 05/08 DAK - Biopsy, Tangential completed Jem Denton [facility] 5 10:55:36 11/01 Blade Biopsy w/ ED&C completed Rowena Lowery [facility] 4 10:23:53 cholecystectomy completed Marianela Sylvester [facility] 2 08:50:47 Appendectomy completed Marianela Sylvester [facility] 2 08:50:52 hernia repair completed Marianela Sylvester [facility] 2 08:51:06 colonoscopy completed Marianela [facility] 2 08:51:28 esophagogastroduodenoscopy completed [facility] 2 08:51:32 Imaging Results None recorded. Procedure Notes None recorded. Medical Equipment None Reported. Allergies Allergen ID Allergen Name Allergen Category Reaction Reaction Severity Criticality Documentation Date Start Date Code Code System Note Provider Name and Address Organization Details Recorded Time 741820 iodine medicatio n rash Not available Not available 06/05/2025 5933 RxNorm Destiney woods, [facility] 5 08:06:18 Medications Name Sig Start Date [...] way regardles s of coverage status. Bin: [id number] PCN: CN Group: [id number] ID: [id number] 31. 05/11 completed Not Available Not Available Not Available Vitals Date Recorded Body weight Heart rate Respiratory rate Systolic And Diastolic Provider Name and Address Organization Details Last Updated DateTime 05/11/2022 18715.51 g 65 /min 16 /min 121/78 mm[Hg] Marianela Sylvester [facility] 05/11/2022 08:29:58 Date Recorded Body temperature Systolic And Diastolic Provider Name and Address Organization Details Last Updated DateTime 06/05/2025 97 [degF] 140/88 mm[Hg] Destiney Mariano [facility] 06/05/2025 08:04:54 Date Recorded Body temperature Systolic And Diastolic Provider Name and Address Organization Details Last Updated DateTime 06/05/2025 98.3 [degF] 136/69 mm[Hg] Maral Ochoa [facility] 06/05/2025 13:37:23 Social History Question Answer Notes LastModified by Organizat ion Details LastModified Time Tobacco Smoking Status Never Smoker Marianela Sylvester [facility] 04/19/2022 08:50:33 Sunscreen Use? Yes [email or web address] Informatio n not available 08/13/2025 Tanning Bed Use No [email or web address] Informati on not available 08/13/2025 Are You Or Trying To Become ? No [email or web address] Information not available 08/13/2025 Are You On Control? No [email or web address] Information not available 08/13/2025 Are You ? No [email or web address] Information not available 08/13/2025 What Was The Date Of Your Most Recent Tobacco Screening? 08/13/2025 [email or web address] Information not available 08/13/2025 Has Tobacco Cessation [...] Y Acid Reflux (GERD) Y Heart Attack ([place]) Y Colon Polyps Y High Cholesterol Y Past Encounters Encounter ID Performer Location Encounter Start Date Encounter Closed Date Diagnosis/Indication Diagnosis SNOMED-CT Code Diagnosis ICD10 Code Diagnosis IMO Codes Diagnosis Note [id number] PAULO VERA APRN [facility] [address] [place] [id number] 04/19/2022 08:31:07 04/19/2022 10:17:53 Chronic idiopathic constipation 05383647 K59.04 History of polyp of colon 883864294 Z86.010 Hiatal hernia 27868732 K 44.9 Dysphagia 90121863 R13.1 0 [id number] HAMZAH SHAHID MD SURGERY SCHEDULE [address] [address] 04/27/2022 11:16:42 04/27/2022 11:18:27 [id number] PAULO VERA APRN [facility]STR[facility] [address] [address] 05/11/2022 08:20:43 05/11/2022 12:45:44 Chronic idiopathic constipation 60129683 K59.04 Continue daily Linzess.Co lonoscopy in 3 years, sooner if needed.Fol low up 1 year, sooner if needed, call for any questions or concerns. Gastroesop hageal reflux disease without esophagitis 504615135 K21.9 Continue pantoprazo le, may add PepcidAC twice daily as needed.Inc rease fiber in diet, fresh fruit and vegetables , okay to add pre and probiotic. [id number] BARBARA CUADRA PA-C [address] [address] 11/01/2024 09:58:13 11/01/2024 11:38:57 Neoplasm of uncertain behavior of skin 10894396 D48.5 A biopsy with ED&C was recommende d. Explained that this treatment is done before pathology results so there is a chance another procedure could be recommende d following pathology review. - Verbal consent given by patient. Disc pain, scar, bleeding, infection, recurrence and possible need for more treatment. Disc specimen will be sent to pathology- Written wound instructio ns were provided to patient.- Patient was told that they should receive results in 2 weeks via portal or telephone. - If they have not received results in two weeks, they were instructed to call. Melanocyti c nevus of skin of face 6987839088 D22.30 He notes this is longstandi ng.Continu e to monitor for changes in size, shape and color.Retu rn to care if lesion becomes bothersome or if changes occur. [id number] BARBARA CUADRA PA-C [address] [address] 05/08/2025 09:58:28 05/08/2025 11:01:48 Multiple benign melanocytic nevi 766931672 D22.5 I78.1 L82.1 L81.4 Benign appearing lesions.Co ntinue to monitor and follow-up with any or changing lesions.Re commend to wear SPF 30+ with zinc or titanium oxide cream daily. Prefers lotions/cr eams over sprays.Fol low up in 1 year for a full skin exam. Neoplasm o f uncertain behavior of skin 07052853 D48.5 Biopsy recommende d today. - Verbal consent given by patient. Disc pain, scar, bleeding, infection and possible need for more treatment. Disc specimen will be sent to pathology - Written wound instructio ns were provided to patient. - Patient was told that they should receive results in 2 weeks via portal or telephone. - If they have not received results in two weeks, they were instructed to call. Eruption [id number] R21 74967 Consider folliculit is v Manuel dee culture today.Will call with results and discuss plan thereafter Actinic keratosis 908087 007 L57.0 Precancero us lesion(s). Will LN2 today. Can leave a white discolorat ion in the areas when LN2 is performed. Follow-up if lesion(s) persists or do not resolve. Neoplasm o f uncertain behavior of face 98708351 D48.7 [id number] Likely cyst.Patie nt notes that the lesion is bothersome and growing.Di scussed treatment with excison.Ri sks include infection, bleeding, scar, and recurrence of lesion.Ocu loplastic referral sent via [facility] fax to Dr. Bowers's office to evaluate further. Inflamed s eborrheic keratosis 084229007 L82.0 R20.8 Benign ISK. Lesion(s) are/is bothersome . Will LN2 today. Can leave a white discolorat ion in the areas where LN2 is performed. May not completely go away. May be more of a debulking. [id number] DION HOGAN MD [facility] [address] [place] [address] 06/05/2025 07:37:32 06/12/2025 12:04:35 [id number] ANUEL MENDES PA-C [facility] [address] [place] [address] 08/13/2025 09:28:37 08/13/2025 11:12:17 Multiple benign melanocytic nevi 071583440 D22.5 - Benign moles seen on exam [...] changing or worrisome lesions Seborrheic keratosis 394 744078 L82.1 - Benign overgrowth s of skin - Hereditary Senile angioma 9679068 I 78.1 - Benign blood vessel growths - Hereditary Solar lentigo 30423634 L 81.4 - Benign brown spots - Sun-induce d History of Malignant melanoma 301942927 Z85.820 [id number] 05/08/2025 - MMis - Nicka - Reiterated need for annual eye exams, [...] scheduled to RTC in 10/2025. Actinic keratosis 333149 007 L57.0 62215 Actinic keratoses are precancero us lesions that [...] by Organization Details LastModified Time None Recorded Advance Directives Directive None Recorded Payers Insurance Date Sequence Insurance Name Policy Number Policy Jennings Covered Member ID Jennings Member ID Guarantor Name 05/15/2025 1 [place] [id number] Betty Witt [id number] Romeo Russo Miryam 06/30/2025 PAYMENT PLAN Romeo Coreasanan 08/20/2025 1 [place] [id number] Betty Witt [id number] Romeo Coreasanan Notes Date Note Type Note Provider Name and Address Organization Details Recorded Time 05/11/2022 text/html Romeo Witt is a 66 yr old male here today for recheck, chronic constipation and post EGD,colonoscopy.Had upper endoscopy, dilation, which did help swallowing. Taking daily pantoprazole, which helps, but some recurring reflux attacks.Had polyps, recommended recheck her DR. Shahid is 3 years.Linzess 145 mcg is helping with constipation.No new or worsening concerns. PAULO VERA, SAND CLEANING MACHINE OPERATOR [address] [place], [address], [facility] 05/11/2022 09:11:11 11/01/2024 text/html ROS as noted in the HPI I have a spot of concernLocation: R forearmReports: Raised, red crusty spot.- started as scaly spot, got worse, causes radiating pain. No history of skin cancerNew patient BARBARAMICHELINE DOMINIQUEBATSHEVA EPPS [address] [place], [address], [facility] 11/05/2024 13:02:22 05/08/2025 text/html ROS as noted in the HPI I am here for a skin checkReports: spots on back BARBARA DOMINIQUEBATSHEVA EPPS [address] [place], [address], [facility] 05/09/2025 10:37:29 06/05/2025 text/html PREOP CHECKLIST1. Pacemaker or Defibrillator? NO2. Artificial heart valve or joints? NO3. Pt currently on antibiotic? NO - Notes:4. History of bleeding, infection or complications with other surgeries?NO5. Med history, medications and allergies reviewed? YES6. Has pt taken Immunosuppressive meds (imuran, cyclosporine,mycopheno late, chemo etc.?, or steroids in last 2 weeks? NO7. Prearranged Closure? - Notes:8. Have a ride home? YES - Notes:Betty Not Available [facility] 06/11/2025 10:18:09 08/13/2025 text/html Patient requests a FBSE. L ocation: Full bodyLast Skin Check: 05/08/25Hx of MMIS- Glabella- (05/08/2025), tx'd w/ Mohs (06/05/2025)Areas of concern: none JOI: 06/05/25 ANUEL MENDES PA-C [address] [place], [address], [facility] 08/15/2025 13:42:36
--- OUTSIDE RECORDS SUMMARY | 2025-09-26 08:04 | XMS_ITS | Encounter Summary ---
Author Organization [employer] ([place], [place], [place], [place]) Address [address] [place] [address] Care Team Providers Care Power Lineworker Name Role Phone Jerzy Gomez MD Primary Care Provider + [phone] Mark Dockery PA-C Unavailable [phone] Encounter Details Date Type Department Care Team (Late st Contact Info) Description 02/23/2019 Transcribed Document [facility] Pulm & Critical Care Medicine [address] [place] [address] [place] [address] Mai Serrano MD [address] [facility] [address] [place] [id number] Social History Tobacco Use Types Packs/Day Years Used Date Smoking Tobacco: Never Assessed Sex and Gender Information Value Date Recorded Sex Assigned at Not on file Legal Sex Male 4:49 PM CDT Gender Identity Not on file Sexual Orientation Not on file documented as of this encounter Miscellaneous Notes * Cerner Conversion Note - Mai Serrano MD - 02/23/2019 5:24 PM EDT DATE OF STUDY: 02/19/2019 REFERRING PHYSICIAN: Krissy Nguyen APRN PATIENT DATA: Gender: Male. Age: 63. Race: . Height: 72 inches. Weight: 190 pounds. Body mass index: 26.19. TEST COMMENTS: Spirometry data is acceptable and reproducible according to ATS criteria. Flow volume loops are acceptable with skewing of expiratory limb, scaling of expiratory limb, hinting of airway obstruction. Exhalation time more than 6 seconds. SPIROMETRY DATA: 1. FVC 3.51 L, 70% predicted. 2. FEV1 of 2.23 L, 58% predicted. 3. FEV1/FVC percentage predicted is 63. SPIROMETRY POST BRONCHODILATOR THERAPY: 1. FVC 4.41 L, 87% predicted with a change of 26% and more than 200 mL. 2. FEV1 of 2.69 L, 71% predicted with a change of 21% and more than 200 mL. 3. FEV1/FVC ratio was 61. LUNG VOLUME VIA PLETHYSMOGRAPH: 1. Total lung capacity was 104% predicted. 2. Thoracic gas volume 87% predicted. 3. RV 105% predicted. Diffusion lung capacity was 85% of predicted when corrected to alveolar volume. IMPRESSION: 1. Mild to moderate airway obstruction, GOLD criteria, chronic obstructive pulmonary disease stage 1. Significant response to bronchodilator therapy. 2. Lung volumes were within normal limits. 3. Diffusion lung capacity was within normal limits. Mai Serrano M.D. Dict: 02/23/2019 16:24:16 Trans: 02/23/2019 22:15:07 CC1: Mai Serrano M.D. documented in this encounter Plan of Treatment Not on file documented as of this encounter Visit Diagnoses Not on filedocumented in this encounter Care Teams Power Lineworker Relationship Specialty Start Date End Date Jerzy Gomez MD [address] [place] [address] PCP - General Family Medicine 03/13/24 Mark Dockery PA-C [address], [facility] [address] [place] [id number] Cardiology 03/13/24 documented as of this encounter
== END 2025-09-26 23:59 | disposition home or self-care (01) ==
LOC: RAD 08:00
PROVIDERS: PCP Family Medicine; Visit Provider Family Medicine
DX: R91.8 Other nonspecific abnormal finding of lung field (principal); R91.1 Solitary pulmonary nodule; Z12.2 Encounter for screening for malignant neoplasm of respiratory organs; Z87.891 Personal history of nicotine dependence
CPT/HCPCS: 71271